=== PATIENT | male | born 1955 | race Caucasian/White ===

== ENCOUNTER 2020-01-04 01:35 | Day surgery (SDC) | payer OTHER, SELFPAY ==
[2020-01-01 10:35] VITALS: BMI 40.9
[2020-01-04 09:18] VITALS: BP 196/89; PULSE 98; RESP 20; TEMP 37.3; O2SAT 96
[2020-01-04] MEDS: LACTATED RINGERS 1,000 ML 150 ML IV CONT (09:39)
--- NOTE | 2020-01-04 09:49 | WPDANESEPPF ---
Anes - Initial Pre Proc Eval Procedure: Operation Date: 01/04/20 10:00 Proposed Procedures p Esophagogastroduodenoscopy - Sanjeev Yuan MD Date/Time: 01/04/20 09:49 Surgeon: Sanjeev Yuan MD Pre Op Diagnosis: Epigastric Pain Patient Data Age: 64 Gender: M Height: 6 ft Weight: 140 kg Last Vital Signs Temp 37.3 C 01/04/20 09:18 Pulse 98 01/04/20 09:18 Resp 20 01/04/20 09:18 BP 196/89 H 01/04/20 09:18 Pulse Ox 96 01/04/20 09:18 Allergies Allergy/AdvReac Type Severity Reaction Status Date / Time Penicillins Allergy Unknown RASH Verified 01/04/20 09:17 Sulfa (Sulfonamide Allergy Unknown RASH/HIVES Verified 01/04/20 09:17 Antibiotics) Home Medications Medication Instructions Recorded Confirmed Type amlodipine-benazepril 5 cap PO DAILY 01/01/20 01/01/20 History cetirizine [Zyrtec] 10 mg PO DAILY 01/01/20 01/01/20 History levothyroxine 175 mcg PO DAILY 01/01/20 01/01/20 History pantoprazole 40 mg PO DAILY 01/01/20 01/01/20 History Patient hx anesthesia problems: none Family hx anesthesia problems: none [facility] Past Medical History Medical History Arthritis Bronchitis Hypertension Hypothyroid Pneumonia Sciatica Surgical History Surgical History Hx of colonoscopy removed 4 polyps Social History Social History Smoking status: Never smoker Gender identity (if verbalized by the patient): Male Anes - Eval Final PreProcedure Day of Procedure 01/04/20 09:49 Patient weight: morbidly obese Heart: regular rate and rhythm Lungs: clear to auscultation Airway: Mallampati scale class II Neurological: alert and oriented Last oral intake: >/= 8 hours ASA classification: III Anesthetic plan: proceed Anesthesia type and monitoring: general GIVS and standard monitoring Informed Consent: The patient's anesthetic plan and its attendant risks and benefits were discussed with the patient/family/POA. Questions were solicited and answers provided to the satisfaction of the patient/family/POA.
--- NOTE | 2020-01-04 10:01 | P.CONGI_ITS ---
Assessment and Plan Additional Plan This is a 64-year-old white male patient who complains of mid epigastric pain. Patient states pain initially 1 month ago was rather severe in the epigastric area prompting him to go to the emergency room. He was felt to have a viral gastroenteritis. Pain is persisted however. He states is gradually improving and has lessened somewhat over recent weeks. Recently started on proton pump inhibitor. He additionally notes intermittent difficulty swallowing more pills will hang up in his throat. His weight has remained stable he denies any bleeding. Past medical history is significant for obesity, hypertension, hypothyroidism, current medications include amlodipine, levothyroxine, pantoprazole, Zyrtec, Allergies include penicillin and sulfa. Physical exam reveals patient to be alert. Vital signs stable. HEENT exam unremarkable. He is anicteric. Lungs are clear to auscultation and percussion. Heart is without murmur or extra sounds. Abdominal exam is somewhat obese. Bowel sounds are present soft nontender. He locates pain to the mid epigastric area. Digital external rectal exam is normal. Impression 1. Epigastric pain. This appears most consistent with dyspepsia. Agree with pantoprazole. Plan is for an EGD to assess more thoroughly. 2. Dysphagia. Appears to be oropharyngeal in nature. Will assess the esophagus at the time of endoscopy. 3. Obesity. 4. Hypertension. 5. Hypothyroidism. Plan is to proceed with EGD as described. Continue pantoprazole for now. GI Consult Note Consult date/time: 01/04/20 10:01 HPI: Pedro Coleman is a 64 year old male [facility] Past Medical History Medical History Arthritis Bronchitis Hypertension Hypothyroid Pneumonia Sciatica Surgical History Surgical History Hx of colonoscopy removed 4 polyps Social History Social History Smoking status: Never smoker Gender identity (if verbalized by the patient): Male Meds Home Medications and Allergies Home Medications Medication Instructions Recorded Confirmed Type amlodipine-benazepril 5 cap PO DAILY 01/01/20 01/01/20 History cetirizine [Zyrtec] 10 mg PO DAILY 01/01/20 01/01/20 History levothyroxine 175 mcg PO DAILY 01/01/20 01/01/20 History pantoprazole 40 mg PO DAILY 01/01/20 01/01/20 History Allergies Allergy/AdvReac Type Severity Reaction Status Date / Time Penicillins Allergy Unknown RASH Verified 01/04/20 09:17 Sulfa (Sulfonamide Allergy Unknown RASH/HIVES Verified 01/04/20 09:17 Antibiotics) Vital Signs Vital Signs - 24 hr 01/04/20 09:18 Temperature 37.3 C Pulse Rate 98 Respiratory Rate 20 Blood Pressure 196/89 H Pulse Oximetry 96
[2020-01-04] MEDS: BENZOCAINE (*SP) 60 ML SPRAY CAN (HURRICAINE) 1 SPRAY MUCOUS MEM (10:46)
[2020-01-04 10:57] VITALS: BP 157/94; PULSE 75; RESP 21; O2SAT 100
[2020-01-04 11:07] VITALS: BP 152/92; PULSE 74; RESP 20; O2SAT 98
[2020-01-04 11:17] VITALS: BP 164/80; PULSE 71; RESP 22; O2SAT 98
== END 2020-01-04 11:30 | disposition home or self-care (01) ==
PROVIDERS: PCP Internal Medicine; Visit Provider Internal Medicine Gastroenterology
PROC: 0DJ08ZZ Inspection of Upper Intestinal Tract, Via Natural or Artificial Opening Endoscopic (ICD-10-PCS; CPT 43235; principal; 2020-01-04 10:00)
DX: R10.13 Epigastric pain (principal); K31.7 Polyp of stomach and duodenum; I10 Essential (primary) hypertension; E03.9 Hypothyroidism, unspecified; M19.90 Unspecified osteoarthritis, unspecified site; E66.01 Morbid (severe) obesity due to excess calories; Z68.41 Body mass index [BMI] 40.0-44.9, adult
CPT/HCPCS: 43239; 87081; 88305; 88342; J2704; J7120

== ENCOUNTER 2020-05-27 15:22 | Outpatient (CLI) | payer OTHER, SELFPAY ==
[2020-05-27 16:16] LABS: Alanine Aminotransferase 47 U/L (4-50); Albumin Level 4.6 g/dL (3.5-5.1); Alkaline Phosphatase 116 U/L (38-126); Aspartate Amino Transferase 39 U/L (17-59); Bilirubin,Total 0.7 mg/dL (0.2-1.3); Blood Urea Nitrogen 13 mg/dL (9-20); Calcium 9.2 mg/dL (8.4-10.2); Carbon Dioxide 26 mmol/L (22-30); Chloride 104 mmol/L (98-107); Cholesterol 175 mg/dL (0-200); Estimated Glomerular Filt Rate > 60; Glucose 108 mg/dL (75-110); HDL Direct 40 mg/dL; LDL Cholesterol Direct 109 mg/dL; Potassium 4.6 mmol/L (3.4-5.0); Sodium 139 mmol/L (137-145); Triglycerides 148 mg/dL (<150)
[2020-05-27 16:31] LABS: Thyroid Stimulating Hormone 0.083 uIU/mL (0.465-4.680)
[2020-05-27 16:43] LABS: Prostate Specific Antigen 4.5 ng/mL (< OR = 4.0)
== END 2020-05-27 15:23 | disposition home or self-care (01) ==
PROVIDERS: PCP Internal Medicine; Visit Provider Internal Medicine
DX: Z00.00 Encounter for general adult medical examination without abnormal findings (principal)
CPT/HCPCS: 36415; 80053; 80061; 84153; 84443

== ENCOUNTER 2020-10-07 15:23 | Outpatient (CLI) | payer OTHER, SELFPAY ==
[2020-10-07 15:55] LABS: Basophils Absolute Auto 0.1 K/mm3 (0.0-0.1); Basophils Percent Auto 0.8 % (0.2-1.2); Eosinophils Absolute Auto 0.4 K/mm3 (0-0.3); Eosinophils Percent Auto 5.3 % (0-4.4); Hematocrit 50.8 % (42.0-52.0); Hemoglobin 16.8 g/dL (14.0-18.0); Immature Granulocyte Absolute 0.02 K/mm3 (0.00-0.031); Immature Granulocyte Percent A 0.3 % (0-0.5); Lymphocytes Absolute Auto 1.59 K/mm3 (0.9-3.2); Lymphocytes Percent Auto 22.1 % (18.3-44.2); Mean Corpuscular HGB Conc 33.1 g/dl (32-36); Mean Corpuscular Hemoglobin 31.3 pg (26-34); Mean Corpuscular Volume 94.6 fl (80-100); Mean Platelet Volume 11.9 fl (7.4-10.4); Monocytes Absolute Auto 0.6 K/mm3 (0.1-0.6); Monocytes Percent Auto 7.9 % (2.6-8.5); Neutrophils Absolute Auto 4.6 K/mm3 (1.3-6.7); Neutrophils Percent Auto 63.6 % (45.5-73.1); Platelet Count Result 185 k/mm3 (150-375); Red Blood Count 5.37 M/mm3 (4.6-6.20); Red Cell Distribution Width 14.1 % (11.5-14.5); White Blood Count 7.2 K/mm3 (4.5-10.0)
[2020-10-07 16:35] LABS: Prostate Specific Antigen 1.7 ng/mL (< OR = 4.0)
== END 2020-10-07 15:24 | disposition home or self-care (01) ==
LOC: ANHLAB 15:26
PROVIDERS: PCP Internal Medicine; Visit Provider Internal Medicine
DX: R97.20 Elevated prostate specific antigen [PSA] (principal); E83.119 Hemochromatosis, unspecified
CPT/HCPCS: 36415; 82728; 84153; 85025

== ENCOUNTER 2021-06-03 16:30 | Outpatient (CLI) | payer OTHER, SELFPAY ==
[2021-06-03 17:00] LABS: Basophils Absolute Auto 0.1 K/mm3 (0.0-0.1); Basophils Percent Auto 0.8 % (0.2-1.2); Eosinophils Absolute Auto 0.3 K/mm3 (0-0.3); Eosinophils Percent Auto 4.6 % (0-4.4); Hematocrit 52.9 % (42.0-52.0); Hemoglobin 17.8 g/dL (14.0-18.0); Immature Granulocyte Absolute 0.01 K/mm3 (0.00-0.031); Immature Granulocyte Percent A 0.1 % (0-0.5); Lymphocytes Absolute Auto 1.31 K/mm3 (0.9-3.2); Lymphocytes Percent Auto 17.8 % (18.3-44.2); Mean Corpuscular HGB Conc 33.6 g/dl (32-36); Mean Corpuscular Hemoglobin 32.3 pg (26-34); Mean Platelet Volume 11.9 fl (7.4-10.4); Monocytes Absolute Auto 0.6 K/mm3 (0.1-0.6); Monocytes Percent Auto 7.9 % (2.6-8.5); Neutrophils Absolute Auto 5.1 K/mm3 (1.3-6.7); Neutrophils Percent Auto 68.8 % (45.5-73.1); Platelet Count Result 198 k/mm3 (150-375); Red Blood Count 5.51 M/mm3 (4.6-6.20); Red Cell Distribution Width 13.4 % (11.5-14.5); White Blood Count 7.4 K/mm3 (4.5-10.0)
[2021-06-03 19:02] LABS: Alanine Aminotransferase 54 U/L (4-50); Alkaline Phosphatase 108 U/L (38-126); Anion Gap 12 mmol/L (8-16); Aspartate Amino Transferase 50 U/L (17-59); Bilirubin,Total 1.3 mg/dL (0.2-1.3); Blood Urea Nitrogen 12 mg/dL (9-20); Calcium 10.4 mg/dL (8.4-10.2); Carbon Dioxide 27 mmol/L (22-30); Chloride 98 mmol/L (98-107); Cholesterol 249 mg/dL (0-200); Estimated Glomerular Filt Rate 60; Glucose 110 mg/dL (75-110); HDL Direct 57 mg/dL; Potassium 4.4 mmol/L (3.4-5.0); Sodium 137 mmol/L (137-145); Triglycerides 162 mg/dL (<150)
[2021-06-03 19:15] LABS: LDL Cholesterol Direct 131 mg/dL
== END 2021-06-03 16:31 | disposition home or self-care (01) ==
LOC: ANHLAB 16:35
PROVIDERS: PCP Internal Medicine; Visit Provider Internal Medicine
DX: Z00.00 Encounter for general adult medical examination without abnormal findings (principal)
CPT/HCPCS: 36415; 80053; 80061; 82728; 84153; 85025

== ENCOUNTER 2021-07-15 15:38 | Outpatient (CLI) | payer OTHER, SELFPAY ==
[2021-07-15 16:12] LABS: Basophils Absolute Auto 0.1 K/mm3 (0.0-0.1); Basophils Percent Auto 0.9 % (0.2-1.2); Eosinophils Absolute Auto 0.3 K/mm3 (0-0.3); Eosinophils Percent Auto 4.5 % (0-4.4); Hematocrit 51.6 % (42.0-52.0); Hemoglobin 16.9 g/dL (14.0-18.0); Immature Granulocyte Absolute 0.02 K/mm3 (0.00-0.031); Immature Granulocyte Percent A 0.3 % (0-0.5); Lymphocytes Absolute Auto 1.24 K/mm3 (0.9-3.2); Lymphocytes Percent Auto 17.8 % (18.3-44.2); Mean Corpuscular HGB Conc 32.8 g/dl (32-36); Mean Corpuscular Hemoglobin 32.4 pg (26-34); Mean Platelet Volume 12.1 fl (7.4-10.4); Monocytes Absolute Auto 0.5 K/mm3 (0.1-0.6); Monocytes Percent Auto 7.8 % (2.6-8.5); Neutrophils Absolute Auto 4.8 K/mm3 (1.3-6.7); Neutrophils Percent Auto 68.7 % (45.5-73.1); Platelet Count Result 177 k/mm3 (150-375); Red Blood Count 5.21 M/mm3 (4.6-6.20); Red Cell Distribution Width 13.2 % (11.5-14.5)
[2021-07-15 20:14] LABS: Iron 103 ug/dL (49-181)
[2021-07-15 20:33] LABS: Percent Iron Saturation 30 % (20-50)
[2021-07-18 18:31] LABS: Erythropoietin (EPO) 10.2 mIU/mL (2.6-18.5)
== END 2021-07-15 15:39 | disposition home or self-care (01) ==
PROVIDERS: PCP Internal Medicine; Visit Provider Internal Medicine Hematology & Oncology
DX: D75.1 Secondary polycythemia (principal); E83.19 Other disorders of iron metabolism
CPT/HCPCS: 36415; 81256; 82668; 82728; 83540; 83550; 85025

== ENCOUNTER 2021-08-14 00:03 | Day surgery (SDC) | payer OTHER, SELFPAY ==
[2021-07-31 13:42] VITALS: BMI 44.2
[2021-08-14 06:55] VITALS: BP 146/86; PULSE 94; RESP 18; TEMP 36.4; O2SAT 97; BMI 44.1
[2021-08-14] MEDS: LACTATED RINGERS 1,000 ML 150 ML IV CONT (07:09)
--- NOTE | 2021-08-14 07:27 | WPDGICN ---
Assessment and Plan Assessment and plan (1) Encounter for screening colonoscopy: Code(s): Z12.11 - Encounter for screening for malignant neoplasm of colon Status: Acute Assessment and Plan: Patient presents for screening colonoscopy. He appears to be at average risk for colon polyps. Further recommendations will be given after endoscopy. (2) Obesity (BMI 30.0-34.9): Code(s): E66.9 - Obesity, unspecified Status: Acute Assessment and Plan: Patient has obesity. Weight loss increase activity or strongly encourage. GI Consult Note Consult date/time: 08/14/21 07:27 HPI: Pedro Coleman is a 66 year old male Presents for screening colonoscopy. patient reports that his weight appetite bowel movements are normal. He denies abdominal pain. He has had no bleeding. Family history is noncontributory. Review of Systems Review of Systems: All systems reviewed & are unremarkable except as noted in HPI and below PMFSH Past Medical History Medical History (Updated 08/14/21 @ 07:29 by Sanjeev Yuan MD) Arthritis Bronchitis Hypertension Hypothyroid Pneumonia Sciatica Surgical History Surgical History Hx of colonoscopy removed 4 polyps Social History Social History Smoking packs per day: 2 Smoking cigarettes per day: 40.0 Years smoked: 35 Smoking pack-years: 70.00 Smoking status: Former smoker Tobacco type: cigarettes Alcohol intake: current Drinks per week: 20 Substance use: never Substance use type: does not use Living arrangements: with family Gender identity (if verbalized by the patient): Male Spiritual care concerns: No Meds Home Medications and Allergies Home Medications Medication Instructions Recorded Confirmed Type amlodipine-benazepril 5 cap PO DAILY 01/01/20 08/14/21 History cetirizine [Zyrtec] 10 mg PO DAILY 01/01/20 08/14/21 History levothyroxine 175 mcg PO DAILY 01/01/20 08/14/21 History aspirin 81 mg PO DAILY 07/31/21 08/14/21 History finasteride 5 mg PO DAILY 07/31/21 08/14/21 History phentermine 30 mg PO DAILY 07/31/21 08/14/21 History tamsulosin 0.4 mg PO DAILY 07/31/21 08/14/21 History Allergies Allergy/AdvReac Type Severity Reaction Status Date / Time Penicillins Allergy Unknown RASH Verified 08/14/21 06:54 Sulfa (Sulfonamide Allergy Unknown RASH/HIVES Verified 08/14/21 06:54 Antibiotics) Vital Signs Vital Signs - 24 hr 08/14/21 06:55 Temperature 97.5 F L Pulse Rate 94 Respiratory Rate 18 Blood Pressure 146/86 H Pulse Oximetry 97 Exam Narrative: Physical exam reveals patient to be alert. Vital signs stable. HEENT exam is unremarkable. Patient is anicteric. Lungs are clear to auscultation and percussion. Heart is without murmur or extra sounds. Abdominal exam is somewhat obese. Bowel sounds are present soft nontender with no organomegaly. Digital external rectal exam is normal.
--- NOTE | 2021-08-14 07:41 | WPDANESEPPF ---
Anes - Initial Pre Proc Eval Procedure: Operation Date: 08/14/21 08:00 Proposed Procedures p Screening Colonoscopy - Sanjeev Yuan MD Date/Time: 08/14/21 07:41 Surgeon: Sanjeev Yuan MD Pre Op Diagnosis: neoplasm screening Patient Data Age: 66 Gender: M Height: 1.83 m Weight: 147.8 kg Last Vital Signs Temp 97.5 F L 08/14/21 06:55 Pulse 94 08/14/21 06:55 Resp 18 08/14/21 06:55 BP 146/86 H 08/14/21 06:55 Pulse Ox 97 08/14/21 06:55 Allergies Allergy/AdvReac Type Severity Reaction Status Date / Time Penicillins Allergy Unknown RASH Verified 08/14/21 06:54 Sulfa (Sulfonamide Allergy Unknown RASH/HIVES Verified 08/14/21 06:54 Antibiotics) Home Medications Medication Instructions Recorded Confirmed Type amlodipine-benazepril 5 cap PO DAILY 01/01/20 08/14/21 History cetirizine [Zyrtec] 10 mg PO DAILY 01/01/20 08/14/21 History levothyroxine 175 mcg PO DAILY 01/01/20 08/14/21 History aspirin 81 mg PO DAILY 07/31/21 08/14/21 History finasteride 5 mg PO DAILY 07/31/21 08/14/21 History phentermine 30 mg PO DAILY 07/31/21 08/14/21 History tamsulosin 0.4 mg PO DAILY 07/31/21 08/14/21 History Patient hx anesthesia problems: none Family hx anesthesia problems: none Results Review: All pre-operative results and documents have been reviewed as part of the pre-operative evaluation. [facility] Past Medical History Medical History (Updated 08/14/21 @ 07:29 by Sanjeev Yuan MD) Arthritis Bronchitis Hypertension Hypothyroid Pneumonia Sciatica Surgical History Surgical History Hx of colonoscopy removed 4 polyps Social History Social History Smoking packs per day: 2 Smoking cigarettes per day: 40.0 Years smoked: 35 Smoking pack-years: 70.00 Smoking status: Former smoker Tobacco type: cigarettes Alcohol intake: current Drinks per week: 20 Substance use: never Substance use type: does not use Living arrangements: with family Gender identity (if verbalized by the patient): Male Spiritual care concerns: No Anes - Eval Final PreProcedure Day of Procedure 08/14/21 07:41 Patient weight: morbidly obese Heart: regular rate and rhythm Lungs: clear to auscultation Airway: Mallampati scale class III Neurological: alert and oriented Last oral intake: >/= 8 hours ASA classification: III Emergent: no Anesthetic plan: proceed Anesthesia type and monitoring: general GIVS and standard monitoring Results Review: All pre-operative results and documents have been reviewed as part of the pre-operative evaluation. Informed Consent: The patient's anesthetic plan and its attendant risks and benefits were discussed with the patient/family/POA. Questions were solicited and answers provided to the satisfaction of the patient/family/POA.
[2021-08-14 08:21] VITALS: BP 112/69; PULSE 75; RESP 22; O2SAT 98
[2021-08-14 08:31] VITALS: BP 139/70; PULSE 72; RESP 23; O2SAT 97
[2021-08-14 08:41] VITALS: BP 143/84; PULSE 66; RESP 19; O2SAT 100
== END 2021-08-14 08:47 | disposition home or self-care (01) ==
PROVIDERS: PCP Internal Medicine; Visit Provider Internal Medicine Gastroenterology
PROC: 0DJD8ZZ Inspection of Lower Intestinal Tract, Via Natural or Artificial Opening Endoscopic (ICD-10-PCS; CPT 45378; principal; 2021-08-14 08:00)
DX: Z12.11 Encounter for screening for malignant neoplasm of colon (principal); K64.8 Other hemorrhoids; K57.30 Diverticulosis of large intestine without perforation or abscess without bleeding; Z86.010 Personal history of colon polyps; I10 Essential (primary) hypertension; E03.9 Hypothyroidism, unspecified; Z87.891 Personal history of nicotine dependence; E66.01 Morbid (severe) obesity due to excess calories; Z68.41 Body mass index [BMI] 40.0-44.9, adult; Z79.82 Long term (current) use of aspirin
CPT/HCPCS: 45378; J2001; J2704; J7120

== ENCOUNTER 2021-10-21 10:16 | Outpatient (CLI) | payer OTHER, SELFPAY ==
--- NOTE | ~2021-10-21 | US_ITS ---
EXAMINATION: US venous doppler [facility] DATE: 10/21/2021 10:50 INDICATION: Acute deep venous thrombosis TECHNIQUE: Grayscale ultrasound images without and with compression and Doppler ultrasound images of the bilateral lower extremity veins were obtained. COMPARISON: None. FINDINGS: The visualized portions of right common femoral vein, profunda (deep) femoral vein, femoral vein, pop liteal vein, posterior tibial veins, peroneal veins, gastrocnemius vein and greater saphenous vein ou tflow are patent. The visualized portions of left common femoral vein, profunda femoral vein, femoral vein, popliteal v ein, posterior tibial veins, peroneal veins, gastrocnemius vein and greater saphenous vein outflow ar e patent. IMPRESSION: 1. No deep venous thrombosis in either lower limb. Reviewed, dictated and finalized at location A. [place] ROASTER
== END 2021-10-21 10:17 | disposition home or self-care (01) ==
LOC: ANHIMG 10:16
PROVIDERS: PCP Internal Medicine; Visit Provider Internal Medicine Hematology & Oncology
DX: I82.4Y3 Acute embolism and thrombosis of unspecified deep veins of proximal lower extremity, bilateral (principal)
CPT/HCPCS: 93970

== ENCOUNTER 2022-04-29 22:54 | Observation (INO) | payer OTHER, SELFPAY ==
--- NOTE | ~2022-04-29 | NM_ITS ---
NM hepatobiliary wo pharm DATE: 04/30/2022 14:51 INDICATION: Cholelithiasis and mild gallbladder wall thickening TECHNIQUE: Serial images of the abdomen up to 60 minutes after intravenous administration of 5 mCi 99 m technetium Choletec. 4 hour delay views. COMPARISON: None FINDINGS: There is normal hepatic extraction of the radiopharmaceutical. No bile duct or gallbladder uptake is noted at [address] abdomen pelvis examination of 04/30/2022 reveals no intrahepatic or extrahepatic b ile duct dilatation. The therefore the retention of activity in the liver and absence of bile duct or gastrointestinal uptake was suggests liver dysfunction. IMPRESSION: Retention of activity in the liver without bile duct or gastrointestinal or gallbladder a ctivity, suggesting liver dysfunction Reviewed, dictated and finalized at [facility]. Reviewed, dictated and finalized at location A. IMPRESSION: Retention of activity in the liver without bile duct or gastrointes tinal or gallbladder activity, suggesting liver dysfunction
--- NOTE | ~2022-04-29 | MR_ITS ---
EXAMINATION: MR MRCP wo/w con/w 3D wo ind DATE: 04/30/2022 13:07 INDICATION: Choledocholithiasis. Abdominal pain. TECHNIQUE: Magnetic resonance imaging (MRI) of the abdomen was performed without and with 20 mL Multi Manpreet intravenous contrast. Sequences included coronal T2-weighted FS FSE, coronal T2-weighted FSE, a xial T1-weighted LAVA, coronal FS FIESTA, axial dual-echo T1-weighted SPGR, coronal lava-FLEX, sagitt al T2-weighted FSE, axial T2-weighted FSE, and axial DWI. Thick-slab T2-weighted FSE images were obta ined for magnetic resonance cholangiopancreatography (MRCP). Maximum intensity projection 3-D reconst ructions of the volumetric data were created by the technologist. Postcontrast sequences included cor onal LAVA-flex and time course of axial T1-weighted LAVA. COMPARISON: CT abdomen and pelvis 04/30/2022, ultrasound abdomen 04/30/2022 FINDINGS: ABDOMEN MRI: There is diffuse hepatic steatosis. The gallbladder is normal in size and contains stone s. The spleen, pancreas, and adrenal glands are normal. There are peripelvic cysts in the kidneys kody suring up to 2.3 cm on the left. There are no dilated loops of bowel. The bladder is distended. ABDOMEN MRCP: The common duct is normal and measures 3 mm. No choledocholithiasis. IMPRESSION: 1. Normal common duct. No choledocholithiasis. 2. Diffuse hepatic steatosis. 3. Cholelithiasis. Reviewed, dictated and finalized at location A.
--- NOTE | ~2022-04-29 | CT_ITS ---
EXAMINATION: CT abdomen pelvis wo con DATE: 04/30/2022 01:43 INDICATION: Epigastric abdominal pain. Abnormal liver function tests. TECHNIQUE: Computed tomography (CT) of the abdomen and pelvis was performed without intravenous contr ast. Automated exposure control and iterative reconstruction technique were employed. The dose-length product was 1574.98 mGy-cm. COMPARISON: CT abdomen and pelvis 12/12/2019 FINDINGS: The visualized portions of the lung bases demonstrate mild atelectasis. No pleural effusion . The heart size is normal. There are coronary artery calcifications. No pericardial effusion. There is diffuse hepatic steatosis. The gallbladder is distended. There is fat stranding around the gallbla dder. The spleen, pancreas, adrenal glands, and right kidney are normal. There are peripelvic cysts i n left kidney measuring up to 2.2 cm. The bladder is distended. The prostate is mildly enlarged. Ther e is diverticulosis of the colon without evidence of diverticulitis. There are no dilated loops of zhang wel. The appendix is normal. There are no pathologically enlarged lymph nodes. There is no free intra peritoneal fluid. There are bridging endplate osteophytes at multiple levels in the spine, consistent with diffuse idiopathic skeletal hyperostosis (DISH). IMPRESSION: 1. Distended gallbladder with surrounding fat stranding suspicious for acute cholecystitis. 2. Diffuse hepatic steatosis. Reviewed, dictated and finalized at location A. IMPRESSION: 1. Distended gallbladder with surrounding fat stranding suspicious for acute ch olecystitis. 2. Diffuse hepatic steatosis.
--- NOTE | ~2022-04-29 | US_ITS ---
EXAMINATION: US abdomen limited DATE: 04/30/2022 10:55 INDICATION: Elevated liver function tests TECHNIQUE: Multiple grayscale and Doppler ultrasound images of the abdomen were obtained. COMPARISON: CT from today FINDINGS: The examination is limited by the patient's body habitus. Bowel gas obscures visualizatio n of the pancreas. The visualized portions of the pancreas are unremarkable. The liver demonstrates i ncreased echogenicity, heterogenous echotexture, and decreased through transmission. No surface nodul arity. Normal hepatopetal flow in the main portal vein. There are stones in the gallbladder. There is mild wall thickening of the gallbladder. No pericholecystic fluid is identified. The normal common b ile duct measures 3 mm. There was no sonographic Harman sign. IMPRESSION: 1. Cholelithiasis and mild gallbladder wall thickening without pericholecystic fluid or sonographic M urphy sign. Findings are equivocal for acute cholecystitis. Consider nuclear hepatobiliary scan. Reviewed, dictated and finalized at location A. IMPRESSION: 1. Cholelithiasis and mild gallbladder wall thickening without pericholecystic fluid or sonographic Harman sign. Findings are equivocal for acute cholecystiti s. Consider nuclear hepatobiliary scan.
[2022-04-29 22:55] VITALS: BP 170/78; PULSE 72; RESP 20; TEMP 36.9; O2SAT 99
--- NOTE | 2022-04-29 23:01 | ECG_ITS ---
Measurements Intervals [place] Rate: 52 P: 50 AK: 166 QRS: 24 QRSD: 98 T: 67 QT: 408 QTc: 383 Interpretive Statements SINUS BRADYCARDIA WITH SINUS ARRHYTHMIA WITHIN NORMAL LIMITS NO PREVIOUS ECG AVAILABLE FOR COMPARISON Electronically Signed On 04-30-2022 14:05:25 CDT by Michael Thacker M.D.
[2022-04-29 23:28] LABS: Basophils Absolute Auto 0.1 K/mm3 (0.0-0.1); Basophils Percent Auto 0.8 % (0.2-1.2); Eosinophils Absolute Auto 0.1 K/mm3 (0-0.3); Eosinophils Percent Auto 0.8 % (0-4.4); Hematocrit 50.4 % (42.0-52.0); Hemoglobin 16.6 g/dL (14.0-18.0); Immature Granulocyte Absolute 0.03 K/mm3 (0.00-0.031); Immature Granulocyte Percent A 0.3 % (0-0.5); Lymphocytes Absolute Auto 1.08 K/mm3 (0.9-3.2); Lymphocytes Percent Auto 12.3 % (18.3-44.2); Mean Corpuscular HGB Conc 32.9 g/dl (32-36); Mean Corpuscular Hemoglobin 31.3 pg (26-34); Mean Corpuscular Volume 95.1 fl (80-100); Mean Platelet Volume 11.7 fl (7.4-10.4); Monocytes Absolute Auto 0.6 K/mm3 (0.1-0.6); Monocytes Percent Auto 6.6 % (2.6-8.5); Neutrophils Percent Auto 79.2 % (45.5-73.1); Platelet Count Result 222 k/mm3 (150-375); Red Cell Distribution Width 13.3 % (11.5-14.5); White Blood Count 8.8 K/mm3 (4.5-10.0)
[2022-04-29 23:36] LABS: Alanine Aminotransferase 535 U/L (6-50); Albumin Level 4.8 g/dL (3.5-5.1); Alkaline Phosphatase 162 U/L (38-126); Anion Gap 8 mmol/L (8-16); Aspartate Amino Transferase 482 U/L (17-59); Bilirubin,Total 2.8 mg/dL (0.2-1.3); Blood Urea Nitrogen 14 mg/dL (9-20); Calcium 9.6 mg/dL (8.4-10.2); Carbon Dioxide 27 mmol/L (22-30); Chloride 97 mmol/L (98-107); Estimated CRCL calculation 85 ml/min; Estimated Glomerular Filt Rate > 60; Glucose 131 mg/dL (65-110); Lipase 609 U/L (23-300); Sodium 132 mmol/L (137-145)
[2022-04-30] VITALS (7 sets, daily range): BP systolic 148–198; BP diastolic 58–100; PULSE 56–91; RESP 12–20; TEMP 35.8–36.7; O2SAT 96–100; BMI 43.4
[2022-04-30] MEDS: MORPHINE SULFATE (*CRX) 4 MG/ML INJ IV PUSH (01:57)
--- NOTE | 2022-04-30 02:21 | ED.ABDPAIN ---
HPI - Abdominal Pain General Chief Complaint: Abdominal Pain Stated Complaint: abd pain Time Seen by Provider: 04/30/22 01:01 Source: patient History of Present Illness HPI narrative: Patient resents with epigastric pain. Patient ports pain started around this afternoon is gotten progressively worse he came to the ER for further evaluation. Reports he attempted multiple [id number] medications without relief. His pain is achy, constant, no radiation, no clear aggravating or alleviating factors. Ports that a similar event couple years ago but it resolved on its own so was never evaluated for it. Reports some nausea denies any diarrhea constipation denies any urinary symptoms. Patient reports a history of hernia repair denies other abdominal surgeries. Related Data Home Medications Medication Instructions Recorded Confirmed amlodipine 5 mg-benazepril 20 mg 5 cap PO DAILY 01/01/20 04/01/22 capsule cetirizine 10 mg capsule (Zyrtec) 10 mg PO DAILY 01/01/20 04/01/22 levothyroxine 175 mcg tablet 175 mcg PO DAILY 01/01/20 04/01/22 aspirin 81 mg capsule 325 mg PO DAILY 07/31/21 04/01/22 finasteride 5 mg tablet 5 mg PO DAILY 07/31/21 04/01/22 phentermine 30 mg capsule 30 mg PO DAILY 07/31/21 04/01/22 tamsulosin 0.4 mg capsule 0.4 mg PO DAILY 07/31/21 04/01/22 Allergies Allergy/AdvReac Type Severity Reaction Status Date / Time Penicillins Allergy Unknown RASH Verified 04/30/22 01:54 Sulfa (Sulfonamide Allergy Unknown RASH/HIVES Verified 04/30/22 01:54 Antibiotics) Review of Systems Review of Systems: CONSTITUTIONAL: Denies fever, chills, or sweats. EYES: Denies visual changes, redness, or discharge. ENT: Denies rhinorrhea, congestion, sore throat, or otalgia. CARDIOVASCULAR: Denies chest pain, palpitations, or edema. RESPIRATORY: Denies cough or dyspnea. GASTROINTESTINAL: Abdominal pain with nausea GENITOURINARY: Denies dysuria or hematuria. SKIN: Denies rash or itching. MUSCULOSKELETAL: Denies back pain, joint pain, or myalgia. NEUROLOGIC: Denies headache, numbness, dizziness, or weakness. PSYCHIATRIC: Denies anxiety or depression. All systems reviewed & are unremarkable except as noted in HPI and below PMFSH Past Medical History Medical History (Updated 04/30/22 @ 03:09 by Duglas Abraham MD) Arthritis Bronchitis Hypertension Hypothyroid Pneumonia Sciatica Surgical History Surgical History Hx of colonoscopy removed 4 polyps Social History Social History Smoking packs per day: 2 Smoking cigarettes per day: 40.0 Years smoked: 35 Smoking pack-years: 70.00 Smoking status: Former smoker Tobacco type: cigarettes Alcohol intake: current Drinks per week: 20 Substance use: never Substance use type: does not use Gender identity (if verbalized by the patient): Male Spiritual care concerns: No Exam Narrative: GENERAL: Well-appearing, well-nourished, and in no acute distress. HEAD: Normocephalic, atraumatic. EYES: PERRLA and EOMI. ENT: Nares clear, no rhinorrhea or epistaxis. Mucous membranes moist. NECK: Supple. No masses. No JVD CHEST: Clear to auscultation. No respiratory distress. No wheezes rales or rhonchi HEART: Regular rate and rhythm. No murmur heard. Normal peripheral pulses. ABDOMEN: Moderate tenderness in the epigastric area soft, nondistended EXTREMITIES: Normal range of motion. No edema. SKIN: Warm, dry, no rash. NEURO: No focal deficits. Alert and oriented x3. PSYCH: Normal mood and affect. Course Reevaluation(s) Reevaluation #1: Patient continues to report pain. Results and plan reviewed with patient. Patient is comfortable inpatient plan. Case cussed with surgery as well as GI will follow along. Patient mated to the hospitalist for further management Date: 04/30/22 Time: 03:06 Vital Signs Vital signs: Vital Signs Temperature 36.9 C
[2022-04-30 02:59] LABS: Appearance Urine Clear (Clear); Bilirubin Urine 1+ (Negative); Blood Urine Negative (Negative); Color Urine Yellow (Yellow); Glucose Urine UA Negative (Negative); Ketones Urine Negative (Negative); Leukocyte Esterase Ur Negative LEU/UL (Negative); Nitrate Urine Negative (Negative); Protein Urine Trace mg/dL (Negative); Urobilinogen Urine 0.2 mg/dL (<2.0); pH Urine 6.5 (5.0-9.0)
[2022-04-30 03:06] LABS: Mucus Urine Rare /lpf; WBC Urine 0-3 /hpf
--- NOTE | 2022-04-30 03:11 | PC.NURSE ---
Pt states they want to hold off on Morphine at this time.
[2022-04-30 03:14] LABS: Add Urine Microscopic? YES
[2022-04-30] MEDS: metroNIDAZOLE 500 MG/ISO 100ML 500 MG/100 ML BAG 100 MG IVPB ×3 (04:02→17:23)
--- NOTE | 2022-04-30 05:37 | PC.NURSE ---
This patient, Pedro Coleman, was admitted to 3 [facility] Surg Room 309-01. Patient/family oriented to hospital policies and general routines including ID bracelet, bed and alarms, visiting hours, pain management, procedures, bathroom and other care routines, personal items, smoking policy, room service/diet, and visiting hours. Information on how to activate the Rapid Response Team has been discussed. Patient/Family are encouraged to report perceived risks to care and to ask questions if they do not understand what they are told or what they should do.
[2022-04-30] MEDS: SODIUM CHLORIDE 0.9% IV 1,000 ML 125 ML IV CONT ×2 (05:49→17:22)
--- NOTE | 2022-04-30 09:35 | PM.IMHP ---
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 Over the past week, patient has been epigastric usually starting hours after eating meal. He would take Rolaids with benefit. Around 3:00 p.m. on the day prior to admission, patient had recurrent epigastric pain that was much more severe in nature rating it 7/10. The pain was constant and sharp. No radiation to the pain. Was not positional. It was pleuritic and this would make the pain worse to 10/10. He tried Gas-X, Prilosec, Rolaids and Tums without benefit. He did have an episode similar to this 3-4 months ago but did not seek medical care at that time. No history of jaundice. No history of hepatitis. Belching made the pain slightly better. He was diaphoretic but no fever or chills. No nausea or vomiting. He has bowel movements once a day in the morning and occasional diarrhea stool with urgency about 2 to 3 times a week that he feels related to food. No melena or hematochezia. EGD on 01/04/2020 showed a gastric nodule that was excised. Pathology showed polypoid gastric mucosa with chronic inflammation. Colonoscopy on 08/14/2021 showed internal hemorrhoids and diverticulosis. He was noted to have evidence of some possible sleep apnea after that colonoscopy. Patient has not followed up his primary care doctor yet to have this evaluated. He does snore but his is never mention that he has apneic spells. He denies daytime somnolence. 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 He is unclear what the underlying etiology is. He does not believe he has had blood gas. He receives monthly phlebotomies for this. He does not take NSAIDs regularly except full ASA due to his erythrocyosis. Because of the severity of the pain and the fact that was constant, patient presented to the emergency room for evaluation. In the emergency room, his blood pressure was as high as 190/100. CBC was normal. LFTs were elevated. Lipase was 609. CT scan of the abdomen pelvis without contrast showed distended gallbladder with surrounding fat stranding suspicious for acute cholecystitis. He also had diffuse hepatic steatosis. Liver enzymes have all been mildly elevated in the past. Patient does drink 4-6 alcoholic drinks per day. He has never experienced alcohol withdrawal, seizures or delirium tremens. He was treated with morphine, Flagyl and Levaquin. Patient was admitted for further care. Pain has resolved with treatment from the ED. Review of Systems Review of Systems: Patient has tinnitus which is chronic. Patient also has lower extremity rash that is chronic felt to be related to the erythrocytosis. All systems reviewed & are unremarkable except as noted in HPI and below PMFSH Past Medical History Medical History (Updated 04/30/22 @ 10:01 by Aristeo Rabago MD) Arthritis BPH (benign prostatic hyperplasia) Bronchitis Hypertension Hypothyroid Pneumonia Sciatica Secondary erythrocytosis Surgical History Surgical History Hx of colonoscopy removed 4 polyps Family History Family History (Updated 04/30/22 @ 09:55 by Aristeo Rabago MD) Mother Diabetes mellitus Father Dementia Skin cancer Sibling Hemochromatosis Social History Social History (Updated 04/30/22 @ 09:57 by Aristeo Rabago MD) Social History: Patient lives with his , son and granddaughter. He drinks 2-3 alcoholic drinks per day with 2 shots per drink. No drug use. No history of IV drug use. Patient smoked up to 2-3 packs per day for 40 years (started at age 14yo). He quit 13 years ago. He is a full code. He nominates his to be the individual would make medical decisions for him if he is unable. Smoking packs per day: 2 Smoking cigarettes per day: 40.0 Years smoked: 35 Smoking
--- NOTE | 2022-04-30 09:51 | WPDGICN ---
Assessment and Plan Assessment and plan (1) Abdominal pain: Qualifiers: Abdominal location: epigastric Qualified Code(s): R10.13 - Epigastric pain Code(s): R10.9 - Unspecified abdominal pain Status: Acute Assessment and Plan: Patient with abrupt onset of mid epigastric pain associated with elevated LFTs and lipase. CT scan raises the question cholecystitis. No specific abnormality in the pancreas. Suspect patient has cholecystitis based on these findings but cannot exclude pancreatitis. Plan to pursue more thorough evaluation with ultrasound. A HIDA scan. If necessary an MRCP after this is accomplished. Because of the question of cholecystitis surgical consultation will be obtained. (2) Elevated LFTs: Code(s): R79.89 - Other specified abnormal findings of blood chemistry Status: Acute Assessment and Plan: Elevated LFTs. Appears to correlate with his abdominal pain. Suspect cholecystitis. No obvious gallstones by initial examination but will seek to exclude this further by ultrasound and HIDA scan. CT scan several years ago revealed no gallstones. (3) Elevated lipase: Code(s): R74.8 - Abnormal levels of other serum enzymes Status: Acute Assessment and Plan: Elevated lipase to 600. May be associated with inflammation but pancreatitis cannot be excluded. Patient is relatively pain free this morning. CT scan without contrast does not specifically see any inflammation of the pancreas however does suggest cholecystitis. Surgery follow-up is anticipated. Will continue to monitor these labs on a daily basis. (4) Erythrocytosis: Code(s): D75.1 - Secondary polycythemia Status: Inactive (5) Obesity (BMI 30.0-34.9): Code(s): E66.9 - Obesity, unspecified Status: Inactive GI Consult Note Consult date/time: 04/30/22 09:51 Reason for consult: Elevated LFTs and abdominal pain. HPI: Pedro Coleman is a 67 year old male I am asked to see at the request of the emergency room. Patient in usual state of health till last evening he began to have mid epigastric pain that became very intense. It did not radiate. Did not radiate to his back. He had no emesis. This did not alleviate his cellphone for this reason he went to the emergency room. He was given pain injections in this morning feels somewhat improved. In the ER elevated LFTs were identified. Patient states he had similar pain that lasted for a day several months ago. No workup was performed he did not talk to his doctor about this. Patient recently seen over the last 2 years for a screening colonoscopy that was unremarkable he had mild gastritis on an EGD. His family history is noncontributory. Patient has been followed for by Hematology for erythrocytosis. This been treated with phlebotomies. Family history as stated is noncontributory. In the ER CT scan without contrast raises the question of cholecystitis. Review of Systems Review of Systems: Review of systems noncontributory. [facility] Past Medical History Medical History (Updated 04/30/22 @ 09:55 by Aristeo Rabago MD) Arthritis BPH (benign prostatic hyperplasia) Bronchitis Hypertension Hypothyroid Pneumonia Sciatica Secondary erythrocytosis Surgical History Surgical History Hx of colonoscopy removed 4 polyps Family History Family History (Updated 04/30/22 @ 05:42 by Jef Altman RN) Mother Diabetes mellitus Father Dementia Skin cancer Sibling Hemochromatosis Social History Social History Smoking packs per day: 2 Smoking cigarettes per day: 40.0 Years smoked: 35 Smoking pack-years: 70.00 Smoking status: Former smoker Tobacco type: cigarettes Second hand tobacco smoke exposure: Yes Alcohol intake: current Drinks per week: 20 Substance use: never Substan
[2022-04-30 10:07] LABS: Basophils Percent Auto 0.6 % (0.2-1.2); Eosinophils Percent Auto 0.6 % (0-4.4); Hematocrit 48.7 % (42.0-52.0); Hemoglobin 15.6 g/dL (14.0-18.0); Immature Granulocyte Absolute 0.03 K/mm3 (0.00-0.031); Immature Granulocyte Percent A 0.4 % (0-0.5); Lymphocytes Absolute Auto 1.04 K/mm3 (0.9-3.2); Lymphocytes Percent Auto 15.5 % (18.3-44.2); Mean Corpuscular Hemoglobin 31.3 pg (26-34); Mean Corpuscular Volume 97.6 fl (80-100); Mean Platelet Volume 11.6 fl (7.4-10.4); Monocytes Absolute Auto 0.5 K/mm3 (0.1-0.6); Neutrophils Percent Auto 74.9 % (45.5-73.1); Platelet Count Result 219 k/mm3 (150-375); Red Blood Count 4.99 M/mm3 (4.6-6.20); Red Cell Distribution Width 13.6 % (11.5-14.5); White Blood Count 6.7 K/mm3 (4.5-10.0)
[2022-04-30 10:26] LABS: Alanine Aminotransferase 664 U/L (6-50); Albumin Level 4.3 g/dL (3.5-5.1); Alkaline Phosphatase 149 U/L (38-126); Aspartate Amino Transferase 645 U/L (17-59); Bilirubin Direct 1.3 mg/dL (0-0.3); Bilirubin Indirect 1.9 mg/dL (0-1.1); Bilirubin,Total 4.3 mg/dL (0.2-1.3)
[2022-04-30 11:25] LABS: Hepatitis B Surface Antigen Negative (Negative)
[2022-04-30 11:31] LABS: HAV RESULT Negative (Negative); Hepatitis B Core IgM Result Negative (Negative)
[2022-04-30 11:43] LABS: Hepatitis C Virus Antibody Negative (Negative)
--- NOTE | 2022-04-30 13:19 | PM.CNGS ---
Assessment and Plan Assessment and plan (1) Acute cholecystitis: Code(s): K81.0 - Acute cholecystitis Status: Acute Assessment and Plan: imaging c/w cholecystitis, cholelithiasis, will need interval cholecystectomy, pt would like to have as outpt if possible, exam now benign, cont abx (2) Elevated LFTs: Code(s): R79.89 - Other specified abnormal findings of blood chemistry Status: Acute Assessment and Plan: likely secondary to choledocholithiasis, exam benign at this point, await further workup c labs and MRCP (3) Elevated lipase: Code(s): R74.8 - Abnormal levels of other serum enzymes Status: Acute Assessment and Plan: see above, no clinical s/s pancreatitis (4) Morbid obesity: Code(s): E66.01 - Morbid (severe) obesity due to excess calories Status: Acute Assessment and Plan: lifestyle and dietary modifications (5) Hypertension: Code(s): I10 - Essential (primary) hypertension Status: Acute Assessment and Plan: stable, mgmt per primary team (6) Alcohol abuse: Code(s): F10.10 - Alcohol abuse, uncomplicated Status: Acute Assessment and Plan: withdraw precautions History of Present Illness Consult details Consult date: 04/30/22 Reason for consult: abdominal pain Requesting physician: Ana Schumacher DO Narrative: Pt is a 67 y/o M presenting to ED c/o severe epigastric abd pain. Pt reports pain was abrupt in onset and was constant and severe. Pt reports pain was localized and did not radiate. Pt reports some assoc nausea and bloating. Pt reports similar episode a few mos ago that was less severe and lasted about a day. Review of Systems Constitutional: Constitutional: Reports anorexia, Denies chills, Denies fatigue, Denies fever(s), Denies lethargy, Denies malaise, Reports poor appetite, Denies weakness, Denies weight gain and Denies weight loss Eyes: Eyes: Reports no additional eye complaints ENT: Reports system reviewed and no additional complaints, except as documented Cardiovascular: Cardiovascular: Reports no additional cardiovascular complaints Respiratory: Respiratory: Reports no additional respiratory complaints Gastrointestinal: Gastrointestinal: Reports as per HPI, Reports abdominal pain, Reports bloating, Reports heartburn, Reports nausea, Denies vomiting and Denies hematemesis Genitourinary: Genitourinary: Reports no additional male genitourinary complaints Musculoskeletal: Musculoskeletal: Reports no additional musculoskeletal complaints Integumentary/Breasts: Skin/Breast: Reports system reviewed and no additional complaints, except as docu Neurologic: Reports system reviewed and no additional complaints, except as documented Psychiatric: Psychiatric: Reports no additional psychiatric complaints Endocrine: Endocrine: Reports no additional endocrine complaints Hematologic/Lymphatic: Hematologic/Lymphatic: Reports no additional hematologic/lymphatic complaints Allergic/Immunologic: Allergic/Immunologic: Reports no additional allergic/immunologic complaints PMFSH Past Medical History Medical History Arthritis BPH (benign prostatic hyperplasia) Bronchitis Hypertension Hypothyroid Pneumonia Sciatica Secondary erythrocytosis Surgical History Surgical History Hx of colonoscopy removed 4 polyps Family History Family History Mother Diabetes mellitus Father Dementia Skin cancer Sibling Hemochromatosis Social History Social History Social History: Patient lives with his , son and granddaughter. He drinks 2-3 alcoholic drinks per day with 2 shots per drink. No drug use. No history of IV drug use. Patient smoked up to 2-3 packs per day for 40 years (sissy
[2022-04-30] MEDS: FOLIC ACID 1 MG/0.2 ML INJ IV PUSH (13:21)
[2022-04-30] MEDS: THIAMINE HCL 200 MG/2 ML VIAL 100 MG IV PUSH (13:22)
[2022-04-30] MEDS: PANTOPRAZOLE SODIUM IV 40 MG VIAL IV PUSH ×2 (13:22→21:00)
[2022-04-30] MEDS: amLODIPine BESYLATE 5 MG TABLET PO (15:17)
[2022-04-30] MEDS: FINASTERIDE 5 MG TABLET PO (15:18)
[2022-04-30] MEDS: LEVOTHYROXINE SODIUM 100 MCG TABLET PO (15:18)
[2022-04-30] MEDS: LEVOTHYROXINE SODIUM 75 MCG TABLET PO (17:23)
[2022-05-01] MEDS: metroNIDAZOLE 500 MG/ISO 100ML 500 MG/100 ML BAG 100 MG IVPB ×4 (00:08→17:10)
[2022-05-01 05:04] LABS: Base Excess ABG -3.1 mEq/l (+/-2.0); Device ROOM AIR; Fractional Inspired Oxygen 21 %; HCO3 ABG 21.3 mEq/l (22.0-26.0); Modified Allen's Test Pass; Oxygen Content ABG 21.9 %vol (16.0-22.0); Oxygen Saturation ABG 96.2 % (95.0-100.0); Oxyhemoglobin 95.1 % THb (90.0-100.0); PCO2 ABG 36.6 mmHg (35.0-45.0); PO2 ABG 83.9 mmHg (80.0-100.0); Site Drawn RIGHT RADIAL; Total Hemoglobin 16.4 g/dL (12.0-18.0); pH ABG 7.383 (7.350-7.450)
[2022-05-01 05:32] VITALS: BP 157/64; PULSE 61; RESP 20; TEMP 36.7; O2SAT 100
[2022-05-01] MEDS: SODIUM CHLORIDE 0.9% IV 1,000 ML 125 ML IV CONT (05:45)
[2022-05-01] MEDS: LEVOTHYROXINE SODIUM 75 MCG TABLET PO (05:46)
[2022-05-01] MEDS: LEVOTHYROXINE SODIUM 100 MCG TABLET PO (05:46)
[2022-05-01 06:58] LABS: Basophils Absolute Auto 0.1 K/mm3 (0.0-0.1); Basophils Percent Auto 1.1 % (0.2-1.2); Eosinophils Absolute Auto 0.1 K/mm3 (0-0.3); Eosinophils Percent Auto 1.3 % (0-4.4); Hematocrit 46.2 % (42.0-52.0); Hemoglobin 15.2 g/dL (14.0-18.0); Immature Granulocyte Absolute 0.02 K/mm3 (0.00-0.031); Immature Granulocyte Percent A 0.4 % (0-0.5); Lymphocytes Absolute Auto 1.04 K/mm3 (0.9-3.2); Lymphocytes Percent Auto 19.9 % (18.3-44.2); Mean Corpuscular HGB Conc 32.9 g/dl (32-36); Mean Corpuscular Hemoglobin 31.7 pg (26-34); Mean Corpuscular Volume 96.3 fl (80-100); Monocytes Absolute Auto 0.5 K/mm3 (0.1-0.6); Monocytes Percent Auto 9.2 % (2.6-8.5); Neutrophils Absolute Auto 3.6 K/mm3 (1.3-6.7); Neutrophils Percent Auto 68.1 % (45.5-73.1); Platelet Count Result 197 k/mm3 (150-375); Red Cell Distribution Width 13.6 % (11.5-14.5); White Blood Count 5.2 K/mm3 (4.5-10.0)
[2022-05-01 07:09] LABS: Alanine Aminotransferase 702 U/L (6-50); Albumin Level 4.2 g/dL (3.5-5.1); Alkaline Phosphatase 154 U/L (38-126); Anion Gap 7 mmol/L (8-16); Aspartate Amino Transferase 469 U/L (17-59); Bilirubin,Total 4.3 mg/dL (0.2-1.3); Blood Urea Nitrogen 10 mg/dL (9-20); Calcium 8.7 mg/dL (8.4-10.2); Carbon Dioxide 27 mmol/L (22-30); Chloride 103 mmol/L (98-107); Estimated CRCL calculation 85 ml/min; Estimated Glomerular Filt Rate > 60; Glucose 107 mg/dL (65-110); Lipase 140 U/L (23-300); Magnesium 2.2 mg/dL (1.6-2.3); Potassium 4.3 mmol/L (3.4-5.0); Sodium 137 mmol/L (137-145)
[2022-05-01] MEDS: amLODIPine BESYLATE 5 MG TABLET PO (08:31)
[2022-05-01] MEDS: TAMSULOSIN HCL 0.4 MG CAPSULE PO (08:31)
[2022-05-01] MEDS: FINASTERIDE 5 MG TABLET PO (08:31)
[2022-05-01] MEDS: PANTOPRAZOLE SODIUM IV 40 MG VIAL IV PUSH (08:31)
[2022-05-01] MEDS: THIAMINE HCL 200 MG/2 ML VIAL 100 MG IV PUSH (08:31)
[2022-05-01] MEDS: lisinopriL 20 MG TABLET PO (08:32)
[2022-05-01] MEDS: FOLIC ACID 1 MG/0.2 ML INJ IV PUSH (08:33)
--- NOTE | 2022-05-01 09:07 | WPDGIPROGNO ---
Progress Note: A&P Assessment and Plan (1) Elevated LFTs: Code(s): R79.89 - Other specified abnormal findings of blood chemistry Status: Acute Assessment and Plan: his bilirubin remains over 4. His lipase has come down to normal. It was thought that elevated liver enzymes may be due to choledocholithiasis, but MRCP was normal ruling out common bile duct stone. There is a possibility he could have sludge in his distal common bile duct. We will continue to monitor his LFTs. (2) Elevated lipase: Code(s): R74.8 - Abnormal levels of other serum enzymes Status: Acute Assessment and Plan: Currently down to normal. And CT scan did not show any evidence of acute pancreatitis. From my perspective he can eat. (3) Alcohol abuse: Code(s): F10.10 - Alcohol abuse, uncomplicated Status: Acute Assessment and Plan: I discussed with him the importance of stopping alcohol. I told that he is developing cirrhosis. I discussed some of the complications of cirrhosis such as esophageal varices with hemorrhage, hepatic encephalopathy etcetera. (4) Acute cholecystitis: Code(s): K81.0 - Acute cholecystitis Status: Acute Assessment and Plan: He states that he was told he would have his gallbladder removed as an outpatient (5) Morbid obesity: Code(s): E66.01 - Morbid (severe) obesity due to excess calories Status: Acute Subjective Date/time seen: 05/01/22 09:07 he denies pain today. He tolerated clear liquids last night. He is not sure why he is NPO at this time. It is his understanding that he will have a cholecystectomy as an outpatient. HIDA scan confirmed hepatic dysfunction as there was no excretion of the dye. I explained to the patient that at this time it appears at the principal cause of his liver disease in abnormal chemistries is his alcohol abuse. He admits to 20 drinks a week, of bourbon. I told that he must stop drinking now because it appears that he is developing cirrhosis Review of Systems Review of Systems: All systems reviewed & are unremarkable except as noted in HPI and below Exam Const: General: alert Nutritional Appearance: obese Orientation/consciousness: patient oriented x3 Resp: Auscultation: clear to auscultation bilaterally Cardio: Rhythm: regular rhythm GI: GI Palp: Yes Soft to palpation, No Tenderness to palpation present (GI) and No Guarding due to palpation present (GI) Auscultation: normal bowel sounds Neuro: General: patient oriented x3 Objective Data Vital Signs Vital Signs: Vital Signs - 24 hr 04/30/22 14:00 04/30/22 21:52 04/30/22 20:00 Temperature 35.8 C L 36.7 C Pulse Rate 56 L 57 L Respiratory Rate 20 20 Blood Pressure 148/58 H 152/70 H Pulse Oximetry 97 98 Oxygen Delivery Room Air 04/30/22 23:26 05/01/22 05:32 05/01/22 08:00 Temperature 36.7 C Pulse Rate 61 Respiratory Rate 20 Blood Pressure 157/64 H Pulse Oximetry 97 100 Oxygen Delivery Room Air Room Air Intake/Output Intake/Output: Intake & Output 04/28/22 04/29/22 04/30/22 05/01/22 23:59 23:59 23:59 23:59 Intake Total 1450 1250 Output Total 1200 900 Balance 250 350 Meds/Results Medications: Active Medications Generic Name Dose Route Start Last Admin Trade Name Nataly PRN Reason Stop Dose Admin Amlodipine Besylate 5 mg 04/30/22 11:00 05/01/22 08:31 Amlodipine Besylate 5 Mg Tablet PO 05/31/22 10:59 5 mg DAILY DARIELA Administration Finasteride 5 mg 04/30/22 11:00 05/01/22 08:31 Finasteride 5 Mg Tablet PO 5 mg DAILY DARIELA Administration Folic Acid 1 mg 05/01/22 09:00 05/01/22 08:33 Folic Acid 1 Mg/0.2 Ml Inj IV PUSH 1 mg QAM DARIELA Administration Levofloxacin/Dextrose 750 mg in 150 mls @ 100 mls/hr 05/01/22 07:00 05/01/22 08:24 Levaquin 750 Mg/D5w 150 Ml IVPB Infused Q24H DARIELA Infusion Metronidazole 500 mg in 100 mls @ 100 mls/hr 04/30/22 11:00
[2022-05-01 09:16] LABS: Free T4 Free Thyroxine Reflex 1.62 ng/dL (0.78-2.19)
--- NOTE | 2022-05-01 10:28 | PM.PNGS ---
Progress Note: A&P Assessment and Plan (1) Acute cholecystitis: Code(s): K81.0 - Acute cholecystitis Status: Acute Assessment and Plan: pain is resolved while patient was in the emergency room and has not returned. No evidence of pancreatitis on MRI and lipase down to normal. Discussed with Dr. Yoon. Agree with restarting diet. If patient tolerates without recurrence of pain and liver enzymes improve, could go home tomorrow. (2) Elevated LFTs: Code(s): R79.89 - Other specified abnormal findings of blood chemistry Status: Acute Assessment and Plan: Still elevated. HIDA scan should just primary liver disease. Discussed with Dr. Yoon. Patient likely has significant primary liver disease. This could be associated with his secondary polycythemia. (3) Alcohol abuse: Code(s): F10.10 - Alcohol abuse, uncomplicated Status: Acute Assessment and Plan: Admits to 20 drinks of bourbon a week. (4) Secondary erythrocytosis: Code(s): D75.1 - Secondary polycythemia Status: Acute Assessment and Plan: Being treated with intermittent phlebotomy by Oncology. Subjective Subjective Date/Time Seen: 05/01/22 10:28 Patient reports: no new complaints, feels better ( not particularly hungry though), pain is less ( no abdominal pain since patient was in the emergency room) and afebrile Review of Systems Review of Systems: All systems reviewed & are unremarkable except as noted in HPI and below Constitutional: Constitutional: Denies chills and Denies fever(s) Cardiovascular: Cardiovascular: Denies chest pain and Denies dyspnea Respiratory: Respiratory: Denies cough and Denies dyspnea Gastrointestinal: Gastrointestinal: Reports as per HPI Integumentary/Breasts: Skin/Breast: Denies lesions and Denies rash Exam Const: General: cooperative, comfortable, no acute distress, alert and awake; No confusion Nutritional Appearance: obese Orientation/consciousness: patient oriented x3 and No confusion GI: Inspection: normal to inspection and obesity GI Palp: Yes Soft to palpation, No Tenderness to palpation present (GI), No Guarding due to palpation present (GI), Yes No hepatosplenomegaly present and No Rebound tenderness present Auscultation: normal bowel sounds Neuro: General: patient oriented x3, no focal motor deficits and No confusion Extrem: General: no calf tenderness and no edema Psych: Affect: normal affect Insight: Good insight present (Psych) Judgement: Good judgement present (Psych) Objective Data Vital Signs Vital Signs: Vital Signs - 24 hr 04/30/22 14:00 04/30/22 21:52 04/30/22 20:00 Temperature 35.8 C L 36.7 C Pulse Rate 56 L 57 L Respiratory Rate 20 20 Blood Pressure 148/58 H 152/70 H Pulse Oximetry 97 98 Oxygen Delivery Room Air 04/30/22 23:26 05/01/22 05:32 05/01/22 08:00 Temperature 36.7 C Pulse Rate 61 Respiratory Rate 20 Blood Pressure 157/64 H Pulse Oximetry 97 100 Oxygen Delivery Room Air Room Air Intake/Output Intake/Output: Intake & Output 04/28/22 04/29/22 04/30/22 05/01/22 23:59 23:59 23:59 23:59 Intake Total 1450 1250 Output Total 1200 900 Balance 250 350 Meds/Results Medications: Active Medications Generic Name Dose Route Start Last Admin Trade Name Nataly PRN Reason Stop Dose Admin Amlodipine Besylate 5 mg 04/30/22 11:00 05/01/22 08:31 Amlodipine Besylate 5 Mg Tablet PO 05/31/22 10:59 5 mg DAILY DARIELA Administration Finasteride 5 mg 04/30/22 11:00 05/01/22 08:31 Finasteride 5 Mg Tablet PO 5 mg DAILY DARIELA Administration Folic Acid 1 mg 05/01/22 09:00 05/01/22 08:33 Folic Acid 1 Mg/0.2 Ml Inj IV PUSH 1 mg QAM DARIELA Administration Levofloxacin/Dextrose 750 mg in 150 mls @ 100 mls/hr 05/01/22 07:00 05/01/22 08:24 Levaquin 750 Mg/D5w 150 Ml IVPB Infused Q24H DARIELA Infusion Metronidazole 500 mg in 100 mls @ 100 mls/hr
[2022-05-01 10:54] LABS: Total Triiodothyronine (T3) 0.83 NG/ML (0.97-1.69)
[2022-05-01 11:19] LABS: INR 1.1; Prothrombin Time 13.3 Seconds (11.1-14.7)
[2022-05-01] MEDS: ENOXAPARIN 40 MG/0.4 ML SYRINGE SUB-Q (11:20)
[2022-05-01 14:00] VITALS: BP 128/74; PULSE 93; RESP 20; TEMP 36.4; O2SAT 95
--- NOTE | 2022-05-01 14:15 | PM.IMPN ---
Progress Note: A&P Assessment and Plan (1) Acute cholecystitis: Code(s): K81.0 - Acute cholecystitis Status: Acute (2) Abdominal pain: Qualifiers: Abdominal location: epigastric Qualified Code(s): R10.13 - Epigastric pain Code(s): R10.9 - Unspecified abdominal pain Status: Acute (3) Elevated LFTs: Code(s): R79.89 - Other specified abnormal findings of blood chemistry Status: Acute (4) Elevated lipase: Code(s): R74.8 - Abnormal levels of other serum enzymes Status: Acute (5) Hypertension: Code(s): I10 - Essential (primary) hypertension Status: Acute (6) Alcohol abuse: Code(s): F10.10 - Alcohol abuse, uncomplicated Status: Acute (7) Secondary erythrocytosis: Code(s): D75.1 - Secondary polycythemia Status: Acute (8) Hypothyroid: Code(s): E03.9 - Hypothyroidism, unspecified Status: Acute (9) BPH (benign prostatic hyperplasia): Code(s): N40.0 - Benign prostatic hyperplasia without lower urinary tract symptoms Status: Acute (10) Morbid obesity: Code(s): E66.01 - Morbid (severe) obesity due to excess calories Status: Acute Plan Patient presents with acute onset abdominal pain in the epigastric region. This follows a week of milder symptoms. Does not appear to be associated with food but CT Abd was consistent with acute cholecystitis. Elevated liver enzymes are concerning for possible choledocholithiasis but ERCP showing diffuse hepatic steatosis and cholelithiasis but no choledocholithiasis. Hepatitis panel negative. HIDA scan shows retention activity in the liver suggesting liver dysfunction. He may have passed a stone given the fact that his pain is resolved. He could have acute alcoholic hepatitis as well. Repeat Lipase normal. Consider also biliary sludge in the biliary tree. LFTs slightly improved with AST dropping. Appreciate GenSurg and GI input. Monitor LFTs but consider ERCP if levels remains persistently high. Diet started and tolerating well. His current lifestyle choices are contributing to his medical problems and the benefits of leading a healthy lifestyle were discussed in detail with him again with present. ABG showing 7.38/36/84 on RA but ApneaLink showing AHI 38, RI 39 with lowest SpO2 72% but only hypoxic for total of 15 minutes. He was educated about the benefits of abstain from alcohol use. Continue thiamine and folate. Ativan available as needed for high CIWA scores but has not required this yet. Bladder noted to be distended so PVR checked but only 107mL. DVT prophylaxis: Lovenox Code status: full Subjective Date/time seen: 05/01/22 14:15 Interval history: 67yo male with hx of alcohol abuse, HTN and erythrocytosis here for abdominal pain. Patient feels well. No further abdominal pain. Toelrating oral intake without n/v. No CP or SOB. Family at bedside and they were updated with patient's permission. Exam Narrative: AF 98.1 157/64 61 20 100% ra Gen - NARD Chest - CTA bilaterally, nml RR CV - RRR S1/S2 Abd - soft, obese, NT Ext - no pedal edema Neuro - nonfocal Psych - normal mood and affect. He did become emotional when talking about the benefits of healthy lifestyle choices Skin - warm and dry. Objective Data Vital Signs Vital Signs: Vital Signs - 24 hr 04/30/22 21:52 04/30/22 20:00 04/30/22 23:26 Temperature 98.0 F Pulse Rate 57 L Respiratory Rate 20 Blood Pressure 152/70 H Pulse Oximetry 98 97 Oxygen Delivery Room Air Room Air 05/01/22 05:32 05/01/22 08:00 Temperature 98.1 F Pulse Rate 61 Respiratory Rate 20 Blood Pressure 157/64 H Pulse Oximetry 100 Oxygen Delivery Room Air Intake/Output Intake/Output: Intake & Output 04/28/22 04/29/22 04/30/22 05/01/22 23:59 23:59 23:59 23:59 Intake Total 1450 1450 Output Total 1200 900 Balance 250 550 Meds/Results Medications: Ac
[2022-05-01] MEDS: FAMOTIDINE 20 MG TABLET PO (20:30)
[2022-05-01 22:00] VITALS: BP 143/80; PULSE 88; RESP 18; TEMP 36.8; O2SAT 94
[2022-05-02] MEDS: metroNIDAZOLE 500 MG/ISO 100ML 500 MG/100 ML BAG 100 MG IVPB ×3 (00:12→12:26)
[2022-05-02 06:00] VITALS: BP 167/86; PULSE 72; RESP 18; TEMP 36.2; O2SAT 99
[2022-05-02] MEDS: LEVOTHYROXINE SODIUM 75 MCG TABLET PO (06:08)
[2022-05-02] MEDS: LEVOTHYROXINE SODIUM 100 MCG TABLET PO (06:08)
[2022-05-02 06:42] LABS: Hematocrit 49.4 % (42.0-52.0); Hemoglobin 16.3 g/dL (14.0-18.0); Mean Corpuscular Hemoglobin 31.8 pg (26-34); Mean Corpuscular Volume 96.3 fl (80-100); Platelet Count Result 200 k/mm3 (150-375); Red Blood Count 5.13 M/mm3 (4.6-6.20); Red Cell Distribution Width 13.8 % (11.5-14.5); White Blood Count 6.6 K/mm3 (4.5-10.0)
[2022-05-02 07:02] LABS: Alanine Aminotransferase 547 U/L (6-50); Albumin Level 4.5 g/dL (3.5-5.1); Alkaline Phosphatase 152 U/L (38-126); Anion Gap 9 mmol/L (8-16); Aspartate Amino Transferase 224 U/L (17-59); Bilirubin,Total 1.9 mg/dL (0.2-1.3); Blood Urea Nitrogen 11 mg/dL (9-20); Calcium 9.1 mg/dL (8.4-10.2); Carbon Dioxide 26 mmol/L (22-30); Chloride 102 mmol/L (98-107); Estimated CRCL calculation 85 ml/min; Estimated Glomerular Filt Rate > 60; Glucose 96 mg/dL (65-110); Lipase 98 U/L (23-300); Potassium 4.1 mmol/L (3.4-5.0); Sodium 137 mmol/L (137-145)
[2022-05-02] MEDS: amLODIPine BESYLATE 5 MG TABLET PO (09:01)
[2022-05-02] MEDS: lisinopriL 20 MG TABLET PO (09:01)
[2022-05-02] MEDS: ENOXAPARIN 40 MG/0.4 ML SYRINGE SUB-Q (09:01)
[2022-05-02] MEDS: TAMSULOSIN HCL 0.4 MG CAPSULE PO (09:02)
[2022-05-02] MEDS: FINASTERIDE 5 MG TABLET PO (09:02)
[2022-05-02] MEDS: FAMOTIDINE 20 MG TABLET PO (09:02)
[2022-05-02] MEDS: FOLIC ACID 1 MG TABLET PO (09:02)
[2022-05-02] MEDS: THIAMINE HCL 100 MG TABLET PO (09:02)
--- NOTE | 2022-05-02 10:10 | PM.PNGS ---
Progress Note: A&P Assessment and Plan (1) Acute cholecystitis: Code(s): K81.0 - Acute cholecystitis Status: Acute Assessment and Plan: tolerated low-fat diet yesterday without recurrence of abdominal pain. Okay to discharge from my standpoint. He will call the office tomorrow and make an appointment to see Dr. Huynh and proceed with outpatient laparoscopic cholecystectomy. (2) Elevated LFTs: Code(s): R79.89 - Other specified abnormal findings of blood chemistry Status: Acute Assessment and Plan: Improving (3) Alcohol abuse: Code(s): F10.10 - Alcohol abuse, uncomplicated Status: Acute Assessment and Plan: patient resolves to stop drinking (4) Morbid obesity: Code(s): E66.01 - Morbid (severe) obesity due to excess calories Status: Acute Assessment and Plan: patient plans to change his diet (5) Elevated lipase: Code(s): R74.8 - Abnormal levels of other serum enzymes Status: Resolved Subjective Subjective Date/Time Seen: 05/02/22 10:10 Patient reports: no new complaints ( no abdominal pain at all), feels better, tolerating a regular diet ( low-fat diet) and afebrile Review of Systems Review of Systems: All systems reviewed & are unremarkable except as noted in HPI and below Constitutional: Constitutional: Reports no additional constitutional complaints, Denies chills, Denies fever(s), Reports increased appetite and Denies night sweats Cardiovascular: Cardiovascular: Denies chest pain and Denies dyspnea Respiratory: Respiratory: Denies cough and Denies dyspnea Gastrointestinal: Gastrointestinal: Reports as per HPI, Denies abdominal pain, Denies bloating, Denies GI cramping, Denies heartburn, Denies nausea and Denies vomiting Integumentary/Breasts: Skin/Breast: Denies lesions and Denies rash Exam Const: General: cooperative, healthy appearing, comfortable, no acute distress, alert and awake; No confusion Nutritional Appearance: obese Orientation/consciousness: patient oriented x3 and No confusion Limitations: no limitations GI: Inspection: normal to inspection, non-distended and obesity GI Palp: Yes Soft to palpation, No Tenderness to palpation present (GI), No Guarding due to palpation present (GI), No Hepatosplenomegaly present, No Hernia present, No Palpable mass present, No Ascites present and No Rebound tenderness present Auscultation: normal bowel sounds Neuro: General: patient oriented x3, no focal motor deficits and No confusion Extrem: General: no calf tenderness and no edema Psych: Affect: normal affect Insight: Good insight present (Psych) Judgement: Good judgement present (Psych) Objective Data Vital Signs Vital Signs: Vital Signs - 24 hr 05/01/22 14:00 05/01/22 20:00 05/01/22 22:00 Temperature 36.4 C 36.8 C Pulse Rate 93 88 Respiratory Rate 20 18 Blood Pressure 128/74 143/80 H Pulse Oximetry 95 94 Oxygen Delivery Room Air 05/02/22 06:00 05/02/22 09:00 Temperature 36.2 C L Pulse Rate 72 Respiratory Rate 18 Blood Pressure 167/86 H Pulse Oximetry 99 Oxygen Delivery Room Air Intake/Output Intake/Output: Intake & Output 04/29/22 04/30/22 05/01/22 05/02/22 23:59 23:59 23:59 23:59 Intake Total 1450 2820 900 Output Total 1200 900 Balance 250 1920 900 Meds/Results Medications: Active Medications Generic Name Dose Route Start Last Admin Trade Name Freq PRN Reason Stop Dose Admin Acetaminophen 500 mg 05/01/22 10:26 Acetaminophen 500 Mg Tablet PO Q6H PRN Mild Pain (1-3) or Fever Hydrocodone Bitart/Acetaminophen 1 tab 05/01/22 10:26 Hydrocodone/Acetaminophen (*Crx) 5-325 Mg Tablet PO Q4H PRN Pain Rated 4-6 Amlodipine Besylate 5 mg 04/30/22 11:00 05/02/22 09:01 Amlodipine Besylate 5 Mg Tablet PO 05/31/22 10:59 5 mg DAILY DARIELA Administration Enoxaparin Sodium 40 mg 05/02/22 09:00 05/02/22 09:01 Enoxaparin 40
--- NOTE | 2022-05-02 10:14 | WPDGIPROGNO ---
Progress Note: A&P Assessment and Plan (1) Elevated LFTs: Code(s): R79.89 - Other specified abnormal findings of blood chemistry Status: Acute Assessment and Plan: his bilirubin remains over 4. His lipase has come down to normal. It was thought that elevated liver enzymes may be due to choledocholithiasis, but MRCP was normal ruling out common bile duct stone. There is a possibility he could have sludge in his distal common bile duct. We will continue to monitor his LFTs. 05/02 today his bilirubin is down to 1.9. Transaminases also are much lower. (2) Elevated lipase: Code(s): R74.8 - Abnormal levels of other serum enzymes Status: Resolved Assessment and Plan: Currently down to normal. And CT scan did not show any evidence of acute pancreatitis. From my perspective he can eat. 05/02 he is tolerating his low-fat diet. Discussed the diet with him and told him he needs to be on low-fat diet for the next several weeks if not permanently. I gave him examples awake constitutes fat in the diet such as fried foods, meats that are not lean, potato chips a yolk (3) Alcohol abuse: Code(s): F10.10 - Alcohol abuse, uncomplicated Status: Acute Assessment and Plan: I discussed with him the importance of stopping alcohol. I told that he is developing cirrhosis. I discussed some of the complications of cirrhosis such as esophageal varices with hemorrhage, hepatic encephalopathy etcetera. 05/02 we again talked about liver disease and cirrhosis due to alcohol. I told he truly needs to cut back on his bourbon if not to stop it altogether. He promises he is going to try to do (4) Acute cholecystitis: Code(s): K81.0 - Acute cholecystitis Status: Acute Assessment and Plan: He states that he was told he would have his gallbladder removed as an outpatient (5) Morbid obesity: Code(s): E66.01 - Morbid (severe) obesity due to excess calories Status: Acute Assessment and Plan: I discussed diet not only in terms of his overall health but how it will contribute to cirrhosis but causing fatty changes Plan 05/02 fromour perspective he could be discharged today but he should follow up with Dr. Yuan in the office in 4 weeks Subjective Date/time seen: 05/01/22? 09:07 ?he denies pain today.? He tolerated clear liquids last night.? He is not sure why he is NPO at this time.? It is his understanding that he will have a cholecystectomy as an outpatient.? HIDA scan confirmed hepatic dysfunction as there was no excretion of the dye.? I explained to the patient that at this time it appears at the principal cause of his liver disease in abnormal chemistries is his alcohol abuse.? He admits to 20 drinks a week, of bourbon.? I told that he must stop drinking now because it appears that he is developing cirrhosis. 05/02/22 10:14 Tolerating low-fat diet. Liver enzymes are improving suggesting he may have had sludge or stone in common bile duct that past. The plan is for him to have an outpatient cholecystectomy. Will have follow-up in our office to ensure that his liver enzymes have returned to normal. Exam Const: General: alert Nutritional Appearance: obese Orientation/consciousness: patient oriented x3 Resp: Auscultation: clear to auscultation bilaterally Cardio: Rhythm: regular rhythm GI: Auscultation: normal bowel sounds Neuro: General: patient oriented x3 Objective Data Vital Signs Vital Signs: Vital Signs - 24 hr 05/01/22 14:00 05/01/22 20:00 05/01/22 22:00 Temperature 36.4 C 36.8 C Pulse Rate 93 88 Respiratory Rate 20 18 Blood Pressure 128/74 143/80 H Pulse Oximetry 95 94 Oxygen Delivery Room Air 05/02/22 06:00 05/02/22 09:00 Temperature 36.2 C L Pulse Rate 72 Respiratory Rate 18 Blood Pressure 167/86 H Pulse Oximetry 99 Oxygen Delivery Room Air Intake/Output Intake/Output: Intake & Output 04/29/22
[2022-05-02 14:00] VITALS: BP 120/74; PULSE 86; RESP 20; TEMP 36.6; O2SAT 95
--- NOTE | 2022-05-02 15:03 | PM.DS ---
DS: Admitting Diagnosis Discharge Date 05/02/22 Admitting Diagnosis Abdominal pain DS: Discharge Diagnosis Discharge Diagnosis (1) Acute cholecystitis: Code(s): K81.0 - Acute cholecystitis Status: Acute (2) Abdominal pain: Qualifiers: Abdominal location: epigastric Qualified Code(s): R10.13 - Epigastric pain Code(s): R10.9 - Unspecified abdominal pain Status: Acute (3) Elevated LFTs: Code(s): R79.89 - Other specified abnormal findings of blood chemistry Status: Acute (4) Elevated lipase: Code(s): R74.8 - Abnormal levels of other serum enzymes Status: Resolved (5) Hypertension: Code(s): I10 - Essential (primary) hypertension Status: Acute (6) Alcohol abuse: Code(s): F10.10 - Alcohol abuse, uncomplicated Status: Acute (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 Please see H&P for details. Hospital Course: Patient presented with acute onset abdominal pain in the epigastric region. This follows a week of milder symptoms. Does not appear to be associated with food but CT Abd was consistent with acute cholecystitis. Elevated liver enzymes were concerning for possible choledocholithiasis but ERCP showing diffuse hepatic steatosis and cholelithiasis but no choledocholithiasis. Hepatitis panel was negative. HIDA scan shows retention activity in the liver suggesting liver dysfunction. He may have passed a stone given the fact that his pain resolved quickly. He could have acute alcoholic hepatitis as well. Lipase was mildly elevated but normal on repeat. Consider also biliary sludge in the biliary tree. LFTs on repeat. GenSurg and GI consulted and appreciate their input. Diet started and advanced; he tolerated this well. His current lifestyle choices are contributing to his medical problems and the benefits of leading a healthy lifestyle were discussed in detail with him including avoiding all alcohol containing products. He was monitored with CIWA protocol but he did not develop symptoms of alcohol withdrawal. He was started on thiamine and folate. ABG showing 7.38/36/84 on RA. ApneaLink showing AHI 38, RI 39 with lowest SpO2 72% but only hypoxic for total of 15 minutes. Bladder noted to be distended by imaging so PVR checked but only 107mL. He had no recurrence of the abdominal pain. Tolerating oral intake. He feels well and is ready for discharge. He overall did well and was able to be discharged home on 05/02/22 in stable condition Status at Discharge Cognitive/behavioral status at discharge: stable Time Spent with Patient Time attestation: Total time spent providing and/or coordinating discharge services: 34 miutes Time spent: Greater than 30 minutes Exam Narrative: AF 97.8 120/74 86 20 95% ra Gen - NARD Chest - CTA bilaterally, nml RR CV - RRR S1/S2 Abd - soft, obese, NT Ext - trace pedal edema Psych - normal mood and affect. Skin - warm and dry. DS: Data Data Completed and Pending Labs on day of discharge: Labs from last 24 hours 05/02/22 05/02/22 06:10 06:10 WBC 6.6 RBC 5.13 Hgb 16.3 Hct 49.4 MCV 96.3 MCH 31.8 MCHC 33.0 RDW 13.8 Plt Count 200 MPV 12.0 H Sodium 137 Potassium 4.1 Chloride 102 Carbon Dioxide 26 Anion Gap 9 BUN 11 Creatinine 1.10 Estim Creat Clear Calc 85 Estimated GFR > 60 Glucose 96 C
== END 2022-05-02 15:35 | disposition home or self-care (01) ==
LOC: ANHED 04-30 03:09 → ANH3MEDSUR 04-30 04:05
PROVIDERS: Internal Medicine; Internal Medicine Gastroenterology; Surgery; Admitting Provider Internal Medicine; Emergency Provider Emergency Medicine; PCP Internal Medicine; Visit Provider Internal Medicine
DX: K81.0 Acute cholecystitis (principal); R10.13 Epigastric pain; R79.89 Other specified abnormal findings of blood chemistry; R74.8 Abnormal levels of other serum enzymes; D75.1 Secondary polycythemia; Z79.82 Long term (current) use of aspirin; I10 Essential (primary) hypertension; E03.9 Hypothyroidism, unspecified; N40.0 Benign prostatic hyperplasia without lower urinary tract symptoms; Z87.891 Personal history of nicotine dependence; F10.10 Alcohol abuse, uncomplicated; E66.01 Morbid (severe) obesity due to excess calories; Z68.41 Body mass index [BMI] 40.0-44.9, adult
CPT/HCPCS: 36415; 36600; 74176; 74183; 76376; 76705; 78226; 80053; 80074; 80076; 81001; 82805; 83690; 83735; 84439; 84443; 84480; 85025; 85027; 85610; 93005; 94762; 96361; 96365; 96366; 96367; 96372; 96375; 96376; 99285; A9270; A9537; A9577; C9113; G0378; J1650; J1956; J2270; J3411; J7030

== ENCOUNTER 2022-05-07 13:35 | Outpatient (CLI) | payer OTHER, SELFPAY ==
[2022-05-07 15:38] LABS: Alanine Aminotransferase 157 U/L (6-50); Albumin Level 4.8 g/dL (3.5-5.1); Alkaline Phosphatase 133 U/L (38-126); Anion Gap 11 mmol/L (8-16); Aspartate Amino Transferase 59 U/L (17-59); Bilirubin,Total 1.2 mg/dL (0.2-1.3); Blood Urea Nitrogen 13 mg/dL (9-20); Calcium 9.3 mg/dL (8.4-10.2); Carbon Dioxide 21 mmol/L (22-30); Chloride 103 mmol/L (98-107); Estimated Glomerular Filt Rate > 60; Glucose 85 mg/dL (65-110); Potassium 4.7 mmol/L (3.4-5.0); Sodium 135 mmol/L (137-145)
== END 2022-05-07 13:36 | disposition home or self-care (01) ==
LOC: ANHLAB 13:36
PROVIDERS: Internal Medicine; PCP Internal Medicine; Visit Provider Internal Medicine Hematology & Oncology
DX: R79.89 Other specified abnormal findings of blood chemistry (principal)
CPT/HCPCS: 36415; 80053

== ENCOUNTER 2022-05-13 12:06 | Outpatient (CLI) | payer OTHER, SELFPAY ==
[2022-05-13 15:00] LABS: Alanine Aminotransferase 86 U/L (6-50); Albumin Level 4.5 g/dL (3.5-5.1); Alkaline Phosphatase 102 U/L (38-126); Amylase 98 U/L (30-110); Aspartate Amino Transferase 51 U/L (17-59); Bilirubin,Total 0.9 mg/dL (0.2-1.3)
== END 2022-05-13 12:07 | disposition home or self-care (01) ==
PROVIDERS: PCP Internal Medicine; Visit Provider Surgery
DX: Z01.812 Encounter for preprocedural laboratory examination (principal); K80.10 Calculus of gallbladder with chronic cholecystitis without obstruction
CPT/HCPCS: 36415; 80076; 82150; 86850; 86900; 86901

== ENCOUNTER 2022-05-19 02:38 | Day surgery (SDC) | payer OTHER, SELFPAY ==
[2022-05-11 10:41] VITALS: BMI 42.6
--- NOTE | 2022-05-11 11:04 | PC.NURSE ---
Report to the Outpatient Waiting Room, entrance under the green pavilion located off [facility], at time _1100_ on date _05/19/22_. OR Time: _1 PM_. - You and your visitor will be asked a series of questions to screen for COVID 19 for your protection. - Only one visitor is allowed at this time. - The patient visitor is requested to leave or wait in car when not with patient. - A mask is required within the hospital. Patients may have clear liquids (water, carbonated beverages, clear teas, apple juice) until 3 hours prior to surgery (1000 AM) with a maximum of 20 ounces. - No food from midnight until time of surgery Take the following medications with a SIP of water the morning of surgery: _AMLODIPINE, LEVOTHYROXINE_ Medications to discontinue per DR. HUMMEL - _STARTING 05/12/22 DECREASE ASPIRING TO 81MG DAILY UNTIL SURGERY_ Please no deodorant, or body powder the day of surgery. No jewelry (including any body piercings) or valuables the day of surgery, leave them at home. Please take a shower or bath the night before, or the morning of, surgery with an antibacterial soap. Wear comfortable, loose fitting clothing. - Jewelry must be removed prior to entering the operating room. Rings and piercings that are not removed may be cut off. - The hospital will not accept responsibility for valuables. - Please leave all valuables, including medications, at home the day of surgery. If you are going home after surgery, a licensed company truck driver must drive you home. - NO public transportation without another adult. - We recommend that an adult stay with you for 24 hours following discharge. - We also recommend that you do not drive, make important decision, drink alcoholic beverages, or take any drugs that were not prescribed by your health care provider for at least 24 hours after your discharge time. Follow any additional instructions given to you from DR. HUMMEL. FITZNS SHOWER AM OF SURGERY If you or anyone in your household have experienced Covid symptoms in the past week, please notify your surgeon or the nurse liaison at the phone number below for possible testing. Telephone instructions given to ____PT and asked if any additional questions and then verbalized understanding. Patient advised to call surgeon office or pre surgery nurse liaison [phone] if any additional questions.
[2022-05-19] VITALS (9 sets, daily range): BP systolic 107–144; BP diastolic 49–93; PULSE 63–109; RESP 12–20; TEMP 36.3; O2SAT 96–100
[2022-05-19] MEDS: KETOROLAC 15 MG/ML VIAL (*BKC) IV PUSH (10:41)
[2022-05-19] MEDS: LACTATED RINGERS 1,000 ML 30 ML IV CONT ×2 (10:41→13:08)
[2022-05-19] MEDS: ACETAMINOPHEN 500 MG TABLET 1000 MG PO (10:41)
--- NOTE | 2022-05-19 11:34 | WPDHPUPDATE1 ---
History and Physical Update Update Date/Time: 05/19/22 11:34 History and Physical has been reviewed, including an updated exam of the patient. There are NO changes in the patient's condition. Risks, benefits, and alternatives have been discussed and questions answered. Patient agrees to proceed with procedure.
[2022-05-19] MEDS: MIDAZOLAM HCL (*CRX) 2 MG/2 ML VIAL IV PUSH (11:43)
[2022-05-19] MEDS: ceFAZolin 3 GM/D5W 100 ML 100 ML IVPB (12:03)
[2022-05-19] MEDS: LIDO 1%/EPINEPHRINE/PF 1:200,000 30 ML VIAL XX (12:39)
--- NOTE | 2022-05-19 12:57 | W.PM.PROC2 ---
Procedure Note - Detailed Date of Procedure 05/19/22 Pre-op Diagnosis cholecystitis with cholelithiasis Post-op Diagnosis Same Procedure Performed Laparoscopic cholecystectomy Surgeon Marilu Huynh MD Anesthesia General Indications 67 y/o M c cholecystitis, cholelithiasis Findings cholecystitis, cholelithiasis Description of Procedure The patient was taken to the operating room placed in the supine position. After adequate induction of general anesthesia, the patient was prepped and draped in normal sterile fashion. A time-out was then performed to verify the patient's identity as well as the procedure being performed. I then made a 5 mm incision in the infraumbilical region. Through this, a Veress needle was placed into the peritoneal cavity and CO2 gas was then insufflated. After adequate pneumoperitoneum was achieved, the Veress needle was removed and a 5 mm optiview trocar was placed through this incision under direct visualization. I then placed the laparoscope through this trocar site and under direct visualization placed a further 12 mm subxiphoid port as well as 2 additional 5 mm ports in the right upper abdomen. The gallbladder was then identified and was noted to be moderately inflamed, distended, and full of gallstones. I was able to place a grasper at the dome of the gallbladder and this was retracted anterior and cephalad up over the liver. A 2nd retractor was then placed at the infundibulum and retracted laterally, this allowed visualization of the triangle of Calot. I then was able to visualize the cystic duct in its entirety from its proximal insertion into the gallbladder, to its distal junction with the common hepatic/common bile duct junction. At this point, I carefully skeletonized the proximal cystic duct with the [place] dissector. I then clipped and transected the proximal cystic duct. Next I visualized the cystic artery. Again the artery was skeletonized, clipped, and transected. I then used the Bovie cautery to take down the peritoneal attachments of the gallbladder off the liver bed. This was somewhat difficult given the amount of inflammation in the posterior space. Once the gallbladder specimen was completely detached, an endo-pouch was placed through the 12 mm port site. I then placed the gallbladder specimen into the Endo pouch and removed the endo-pouch from the 12 mm port site. The specimen will now be sent to pathology for further review. I then copiously irrigated the right upper quadrant. Hemostasis was noted in the liver bed, the clips were noted to be in good position on both the cystic duct stump and the cystic artery stump. No other pathology was noted in the right upper quadrant. I then moved the laparoscope to the subxiphoid port. No iatrogenic injury or other pathology was noted in the lower abdomen. I then closed the 12 mm trocar site under direct visualization using the Kiko cone and 0 Vicryl suture. At this point, the abdomen was desufflated and all ports removed. All port sites were then closed with 4.O Monocryl subcuticular sutures. Dermabond was placed on each incision. The patient tolerated the procedure well, was extubated in the operating room postoperative and will be transferred to the recovery room in stable condition Estimated Blood Loss 5 Drains No Packing No Pathology Yes Complications No immediate complications Condition Stable Disposition PACU [facility] Billing Surgery - Charge Forward: Surgery Billing
[2022-05-19] MEDS: fentaNYL CITRATE INJ (*CRX) 100 MCG/2 ML VIAL 25 MCG IV PUSH ×8 (13:20→13:40)
[2022-05-19] MEDS: ONDANSETRON INJ 4 MG/2 ML VIAL IV PUSH (13:22)
[2022-05-19] MEDS: oxyCODONE HCL (*CRX) 5 MG TAB IR PO (14:35)
== END 2022-05-19 15:20 | disposition home or self-care (01) ==
PROVIDERS: PCP Internal Medicine; Visit Provider Surgery
PROC: 0FT44ZZ Resection of Gallbladder, Percutaneous Endoscopic Approach (ICD-10-PCS; CPT 47562; principal; 2022-05-19 12:00)
DX: K80.10 Calculus of gallbladder with chronic cholecystitis without obstruction (principal); I10 Essential (primary) hypertension; E03.9 Hypothyroidism, unspecified; N40.0 Benign prostatic hyperplasia without lower urinary tract symptoms; Z87.891 Personal history of nicotine dependence; Z79.82 Long term (current) use of aspirin; E66.01 Morbid (severe) obesity due to excess calories; F10.10 Alcohol abuse, uncomplicated; Z68.41 Body mass index [BMI] 40.0-44.9, adult
CPT/HCPCS: 47562; 88304; A9270; J0330; J0690; J1100; J1170; J1885; J2250; J2370; J2405; J2704; J2710; J3010; J7120

== ENCOUNTER 2022-06-07 14:46 | Outpatient (CLI) | payer OTHER, SELFPAY ==
[2022-06-07 15:50] LABS: Basophils Percent Auto 0.7 % (0.2-1.2); Eosinophils Absolute Auto 0.1 K/mm3 (0-0.3); Eosinophils Percent Auto 1.9 % (0-4.4); Hematocrit 49.4 % (42.0-52.0); Hemoglobin 15.7 g/dL (14.0-18.0); Immature Granulocyte Absolute 0.01 K/mm3 (0.00-0.031); Immature Granulocyte Percent A 0.2 % (0-0.5); Immature Platelet Fraction Pct 17.6 % (0.9-11.2); Lymphocytes Percent Auto 24.1 % (18.3-44.2); Mean Corpuscular HGB Conc 31.8 g/dl (32-36); Mean Corpuscular Hemoglobin 30.8 pg (26-34); Mean Corpuscular Volume 97.1 fl (80-100); Mean Platelet Volume 13.4 fl (7.4-10.4); Monocytes Absolute Auto 0.4 K/mm3 (0.1-0.6); Monocytes Percent Auto 9.6 % (2.6-8.5); Neutrophils Absolute Auto 2.6 K/mm3 (1.3-6.7); Neutrophils Percent Auto 63.5 % (45.5-73.1); Platelet Count Result 169 k/mm3 (150-375); Red Blood Count 5.09 M/mm3 (4.6-6.20); White Blood Count 4.2 K/mm3 (4.5-10.0)
[2022-06-07 16:00] LABS: Alanine Aminotransferase 74 U/L (6-50); Albumin Level 4.4 g/dL (3.5-5.1); Alkaline Phosphatase 92 U/L (38-126); Anion Gap 9 mmol/L (8-16); Aspartate Amino Transferase 58 U/L (17-59); Bilirubin,Total 0.7 mg/dL (0.2-1.3); Blood Urea Nitrogen 13 mg/dL (9-20); Calcium 9.1 mg/dL (8.4-10.2); Carbon Dioxide 22 mmol/L (22-30); Chloride 108 mmol/L (98-107); Estimated Glomerular Filt Rate > 60; Glucose 101 mg/dL (65-110); Potassium 4.3 mmol/L (3.4-5.0); Sodium 139 mmol/L (137-145)
[2022-06-09 15:46] LABS: Cholesterol 151 mg/dL (0-200); HDL Direct 28 mg/dL; Triglycerides 127 mg/dL (<150)
[2022-06-09 15:57] LABS: LDL Cholesterol Direct 79 mg/dL
[2022-06-10 11:50] LABS: Prostate Specific Antigen 1.1 ng/mL (< OR = 4.0)
== END 2022-06-07 14:47 | disposition home or self-care (01) ==
LOC: ANHLAB 14:48
PROVIDERS: PCP Internal Medicine; Visit Provider Internal Medicine
DX: D75.1 Secondary polycythemia (principal); R35.0 Frequency of micturition; I10 Essential (primary) hypertension; E78.5 Hyperlipidemia, unspecified
CPT/HCPCS: 36415; 80053; 80061; 84153; 84154; 85025; 85055

== ENCOUNTER 2022-06-24 16:17 | Outpatient (CLI) | payer OTHER, SELFPAY ==
[2022-06-24 16:54] LABS: Basophils Percent Auto 0.7 % (0.2-1.2); Eosinophils Absolute Auto 0.1 K/mm3 (0-0.3); Eosinophils Percent Auto 1.6 % (0-4.4); Hematocrit 48.4 % (42.0-52.0); Hemoglobin 15.3 g/dL (14.0-18.0); Immature Granulocyte Absolute 0.01 K/mm3 (0.00-0.031); Immature Granulocyte Percent A 0.2 % (0-0.5); Immature Platelet Fraction Pct 14.9 % (0.9-11.2); Lymphocytes Absolute Auto 1.33 K/mm3 (0.9-3.2); Lymphocytes Percent Auto 21.8 % (18.3-44.2); Mean Corpuscular HGB Conc 31.6 g/dl (32-36); Mean Corpuscular Hemoglobin 30.1 pg (26-34); Mean Corpuscular Volume 95.3 fl (80-100); Monocytes Absolute Auto 0.6 K/mm3 (0.1-0.6); Monocytes Percent Auto 10.3 % (2.6-8.5); Neutrophils Percent Auto 65.4 % (45.5-73.1); Platelet Count Result 199 k/mm3 (150-375); Red Blood Count 5.08 M/mm3 (4.6-6.20); White Blood Count 6.1 K/mm3 (4.5-10.0)
[2022-06-24 17:02] LABS: Alanine Aminotransferase 54 U/L (6-50); Albumin Level 4.5 g/dL (3.5-5.1); Alkaline Phosphatase 92 U/L (38-126); Aspartate Amino Transferase 35 U/L (17-59); Bilirubin,Total 0.7 mg/dL (0.2-1.3)
== END 2022-06-24 16:18 | disposition home or self-care (01) ==
LOC: ANHLAB 16:19
PROVIDERS: PCP Internal Medicine; Visit Provider Internal Medicine Gastroenterology
DX: R79.89 Other specified abnormal findings of blood chemistry (principal); K81.0 Acute cholecystitis
CPT/HCPCS: 36415; 80076; 85025; 85055

== ENCOUNTER 2023-06-13 15:43 | Outpatient (CLI) | payer OTHER, SELFPAY ==
[2023-06-13 16:12] LABS: Hematocrit 50.9 % (42.0-52.0); Hemoglobin 16.6 g/dL (14.0-18.0); Mean Corpuscular HGB Conc 32.6 g/dl (32-36); Mean Platelet Volume 12.6 fl (7.4-10.4); Platelet Count Result 175 k/mm3 (150-375); Red Blood Count 5.53 M/mm3 (4.6-6.20); White Blood Count 6.6 K/mm3 (4.5-10.0)
[2023-06-13 16:24] LABS: Alanine Aminotransferase 40 U/L (6-50); Albumin Level 4.5 g/dL (3.5-5.1); Alkaline Phosphatase 112 U/L (38-126); Anion Gap 9 mmol/L (8-16); Aspartate Amino Transferase 32 U/L (17-59); Bilirubin,Total 0.5 mg/dL (0.2-1.3); Blood Urea Nitrogen 16 mg/dL (9-20); Calcium 9.3 mg/dL (8.4-10.2); Carbon Dioxide 22 mmol/L (22-30); Chloride 105 mmol/L (98-107); Cholesterol 168 mg/dL (0-200); Estimated Glomerular Filt Rate > 60; Glucose 115 mg/dL (65-110); HDL Direct 42 mg/dL; Potassium 4.5 mmol/L (3.4-5.0); Sodium 136 mmol/L (137-145); Triglycerides 96 mg/dL (<150)
[2023-06-13 16:34] LABS: LDL Cholesterol Direct 94 mg/dL
[2023-06-13 16:54] LABS: Prostate Specific Antigen 1.1 ng/mL (< OR = 4.0)
== END 2023-06-13 15:44 | disposition home or self-care (01) ==
LOC: ANHLAB 15:45
PROVIDERS: PCP Internal Medicine; Visit Provider Internal Medicine
DX: Z00.00 Encounter for general adult medical examination without abnormal findings (principal); D75.1 Secondary polycythemia; I10 Essential (primary) hypertension
CPT/HCPCS: 36415; 80053; 80061; 84153; 85027; G0103

== ENCOUNTER 2023-07-07 15:09 | Outpatient (CLI) | payer OTHER, SELFPAY ==
--- NOTE | ~2023-07-07 | CT_ITS ---
EXAMINATION: CT brain wo con DATE: 07/07/2023 15:31 INDICATION: Olfactory agnosia. TECHNIQUE: Computed tomography (CT) of the head was performed without intravenous contrast. The mA wa s adjusted according to patient size. Iterative reconstruction technique was employed. The dose-lengt h product was 605.33 mGy-cm. COMPARISON: Head CT 12/19/2008 FINDINGS: There is no intracranial hemorrhage, acute infarction, or abnormal intracranial mass lesion . There are scattered areas of low attenuation in the cerebral white matter, which is within normal l imits for the patient's age. The ventricles are normal in size. The orbits are normal. There is mild mucosal thickening in the ethmoid sinuses. The mastoid air cells are normal. IMPRESSION: 1. Normal aging brain. Reviewed, dictated and finalized at location A. IMPRESSION: 1. Normal aging brain.
== END 2023-07-07 15:10 | disposition home or self-care (01) ==
PROVIDERS: PCP Internal Medicine; Visit Provider Internal Medicine
DX: R48.1 Agnosia (principal); J32.9 Chronic sinusitis, unspecified
CPT/HCPCS: 70450

== ENCOUNTER 2023-11-18 13:13 | Outpatient (CLI) | payer OTHER, SELFPAY ==
--- NOTE | ~2023-11-18 | US_ITS ---
EXAMINATION:US venous doppler LE LT INDICATION:Leg swelling TECHNIQUE: Multiple grayscale, color flow and Doppler images of the left lower extremity deep venous systems were obtained and reviewed. COMPARISON:10/21/2021 FINDINGS: The common femoral, superficial femoral and popliteal veins demonstrate normal respiratory variation, augmentation and compressibility. Color flow is also seen within the posterior tibial, pe roneal, greater saphenous and profunda veins. IMPRESSION: 1: No lower extremity deep venous thrombosis. Reviewed, dictated and finalized at location A. UP DRIVER
== END 2023-11-18 13:14 | disposition home or self-care (01) ==
LOC: ANHIMG 13:16
PROVIDERS: PCP Internal Medicine; Visit Provider Nurse Practitioner Family
DX: M79.89 Other specified soft tissue disorders (principal)
CPT/HCPCS: 93971

== ENCOUNTER 2024-03-16 15:11 | Outpatient (CLI) | payer OTHER, SELFPAY ==
[2024-03-16 15:24] LABS: Basophils Absolute Auto 0.1 K/mm3 (0.0-0.1); Basophils Percent Auto 0.9 % (0.2-1.2); Eosinophils Absolute Auto 0.1 K/mm3 (0-0.3); Eosinophils Percent Auto 1.4 % (0-4.4); Hematocrit 49.8 % (42.0-52.0); Hemoglobin 16.1 g/dL (14.0-18.0); Immature Granulocyte Absolute 0.02 K/mm3 (0.00-0.031); Immature Granulocyte Percent A 0.3 % (0-0.5); Lymphocytes Absolute Auto 1.76 K/mm3 (0.9-3.2); Lymphocytes Percent Auto 27.6 % (18.3-44.2); Mean Corpuscular HGB Conc 32.3 g/dl (32-36); Mean Corpuscular Hemoglobin 30.2 pg (26-34); Mean Corpuscular Volume 93.4 fl (80-100); Mean Platelet Volume 11.9 fl (7.4-10.4); Monocytes Absolute Auto 0.4 K/mm3 (0.1-0.6); Monocytes Percent Auto 6.6 % (2.6-8.5); Neutrophils Percent Auto 63.2 % (45.5-73.1); Platelet Count Result 202 k/mm3 (150-375); Red Blood Count 5.33 M/mm3 (4.6-6.20); White Blood Count 6.4 K/mm3 (4.5-10.0)
[2024-03-16 16:36] LABS: Iron 96 ug/dL (49-181)
[2024-03-16 16:37] LABS: Anion Gap 8 mmol/L (4-12); Blood Urea Nitrogen 15 mg/dL (9-20); Calcium 9.5 mg/dL (8.4-10.2); Carbon Dioxide 25 mmol/L (22-30); Chloride 103 mmol/L (98-107); Estimated Glomerular Filt Rate > 60; Glucose 128 mg/dL (65-110); Potassium 4.5 mmol/L (3.4-5.0); Sodium 136 mmol/L (137-145)
[2024-03-16 16:46] LABS: Percent Iron Saturation 30 % (20-50)
== END 2024-03-16 15:12 | disposition home or self-care (01) ==
PROVIDERS: Nurse Practitioner Family; PCP Internal Medicine; Visit Provider Internal Medicine Hematology & Oncology
DX: D75.1 Secondary polycythemia (principal); E83.19 Other disorders of iron metabolism
CPT/HCPCS: 36415; 80048; 82728; 83540; 83550; 85025

== ENCOUNTER 2024-06-21 14:31 | Outpatient (CLI) | payer OTHER, SELFPAY ==
[2024-06-21 15:20] LABS: Alanine Aminotransferase 37 U/L (6-50); Albumin Level 4.8 g/dL (3.5-5.1); Alkaline Phosphatase 96 U/L (38-126); Anion Gap 11 mmol/L (4-12); Aspartate Amino Transferase 33 U/L (17-59); Bilirubin,Total 1.1 mg/dL (0.2-1.3); Blood Urea Nitrogen 12 mg/dL (9-20); Calcium 9.4 mg/dL (8.4-10.2); Carbon Dioxide 26 mmol/L (22-30); Chloride 100 mmol/L (98-107); Cholesterol 172 mg/dL (0-200); Estimated Glomerular Filt Rate > 60; Glucose 109 mg/dL (65-110); HDL Direct 39 mg/dL; Potassium 4.3 mmol/L (3.4-5.0); Sodium 137 mmol/L (137-145); Triglycerides 120 mg/dL (<150)
[2024-06-21 15:30] LABS: Basophils Percent Auto 0.6 % (0.2-1.2); Eosinophils Absolute Auto 0.1 K/mm3 (0-0.3); Eosinophils Percent Auto 1.7 % (0-4.4); Hematocrit 51.7 % (42.0-52.0); Hemoglobin 16.9 g/dL (14.0-18.0); Immature Granulocyte Absolute 0.01 K/mm3 (0.00-0.031); Immature Granulocyte Percent A 0.2 % (0-0.5); Immature Platelet Fraction Pct 15.3 % (0.9-11.2); Lymphocytes Absolute Auto 1.05 K/mm3 (0.9-3.2); Lymphocytes Percent Auto 20.3 % (18.3-44.2); Mean Corpuscular HGB Conc 32.7 g/dl (32-36); Mean Corpuscular Hemoglobin 30.6 pg (26-34); Mean Corpuscular Volume 93.7 fl (80-100); Mean Platelet Volume 13.3 fl (7.4-10.4); Monocytes Absolute Auto 0.5 K/mm3 (0.1-0.6); Monocytes Percent Auto 8.9 % (2.6-8.5); Neutrophils Absolute Auto 3.5 K/mm3 (1.3-6.7); Neutrophils Percent Auto 68.3 % (45.5-73.1); Platelet Count Result 182 k/mm3 (150-375); Red Blood Count 5.52 M/mm3 (4.6-6.20); Red Cell Distribution Width 13.3 % (11.5-14.5); White Blood Count 5.2 K/mm3 (4.5-10.0)
[2024-06-21 15:31] LABS: LDL Cholesterol Direct 97 mg/dL
[2024-06-21 15:52] LABS: Prostate Specific Antigen 1.3 ng/mL (< OR = 4.0); Thyroid Stimulating Hormone 0.287 uIU/mL (0.465-4.680)
== END 2024-06-21 14:32 | disposition home or self-care (01) ==
LOC: ANHLAB 14:34
PROVIDERS: PCP Internal Medicine; Visit Provider Internal Medicine
DX: Z00.00 Encounter for general adult medical examination without abnormal findings (principal); D75.1 Secondary polycythemia; R73.03 Prediabetes; Z68.41 Body mass index [BMI] 40.0-44.9, adult
CPT/HCPCS: 36415; 80053; 80061; 83036; 84153; 84443; 85025; 85055

== ENCOUNTER 2024-07-31 15:23 | Outpatient (CLI) | payer OTHER, SELFPAY ==
[2024-08-04 08:07] LABS: Tissue Transglutaminase IgA Ab <1.0 U/mL; Tissue Transglutaminase IgG Ab <1.0 U/mL
== END 2024-07-31 15:24 | disposition home or self-care (01) ==
LOC: ANHLAB 15:25
PROVIDERS: PCP Internal Medicine; Visit Provider Internal Medicine Gastroenterology
DX: K52.9 Noninfective gastroenteritis and colitis, unspecified (principal)
CPT/HCPCS: 36415; 86364

== ENCOUNTER 2024-08-02 16:55 | Outpatient (CLI) | payer OTHER, SELFPAY ==
[2024-08-10 18:54] LABS: Pancreatic Elastase, Stool >500 mcg/g
[2024-08-10 20:24] LABS: Calprotectin, Stool 11 mcg/g
== END 2024-08-02 16:56 | disposition home or self-care (01) ==
PROVIDERS: PCP Internal Medicine; Visit Provider Internal Medicine Gastroenterology
DX: K52.9 Noninfective gastroenteritis and colitis, unspecified (principal)
CPT/HCPCS: 82653; 83993

== ENCOUNTER 2024-08-09 16:38 | Emergency (ER) | payer OTHER, SELFPAY ==
--- NOTE | ~2024-08-09 | XR_ITS ---
XR chest 2V Ordering provider: Eli Montes APRN History: 69 years Male with . fever and cough . Comparison: October 19, 2009 FINDINGS: MEDIASTINUM: The cardiac silhouette is not enlarged. LUNGS: No infiltrates, effusions or pneumothorax. OTHER: No free air under the diaphragm. Degenerative changes of the spine. IMPRESSION: No acute cardiopulmonary pathology. Reviewed, dictated and finalized at location A.
--- NOTE | 2024-08-09 16:52 | ED.URI ---
HPI - URI/Sore Throat General Chief Complaint: Upper Respiratory Infection Stated Complaint: SOB Time Seen by Provider: 08/09/24 17:00 Source: patient, RN notes reviewed and old records reviewed Mode of arrival: ambulatory Limitations: no limitations History of Present Illness HPI Narrative: patient with 2 day history of fever, cough, body aches, headache. Reports that his has COVID, he is concerned about how fatigued he is and how much his cough is hurting him. He reports that he is intermittently short of breath, especially with activity. He has been taking [id number] medications for his symptoms with moderate relief. Last dose of Tylenol was about 4 hours prior to arrival. He reports T-max of 102? Related Data Home Medications Medication Instructions Recorded Confirmed amlodipine 5 mg-benazepril 20 mg 5 cap PO QAM 01/01/20 08/09/24 capsule levothyroxine 175 mcg tablet 175 mcg PO QAM 01/01/20 08/09/24 finasteride 5 mg tablet 5 mg PO HS 07/31/21 08/09/24 tamsulosin 0.4 mg capsule 0.4 mg PO HS 07/31/21 08/09/24 aspirin 81 mg capsule 81 mg PO DAILY 07/26/24 08/09/24 Allergies Allergy/AdvReac Type Severity Reaction Status Date / Time Penicillins Allergy Unknown RASH Verified 08/09/24 16:53 Sulfa (Sulfonamide Allergy Unknown RASH/HIVES Verified 08/09/24 16:53 Antibiotics) Review of Systems Review of Systems: All systems reviewed & are unremarkable except as noted in HPI and below Constitutional: Constitutional: Reports no additional constitutional complaints ENT: Reports system reviewed and no additional complaints, except as documented, Reports as per HPI, Reports nasal congestion and Reports nasal discharge Cardiovascular: Cardiovascular: Reports no additional cardiovascular complaints Respiratory: Respiratory: Reports as per HPI, Reports no additional respiratory complaints, Reports chest congestion, Reports cough, Reports pain with cough and Reports dyspnea Gastrointestinal: Gastrointestinal: Reports no additional gastrointestinal complaints Musculoskeletal: Musculoskeletal: Reports as per HPI and Reports myalgias PMFSH Past Medical History Medical History Arthritis BPH (benign prostatic hyperplasia) Bronchitis Chronic diarrhea Hypertension Hypothyroid Pneumonia Sciatica Secondary erythrocytosis Surgical History Surgical History Hx laparoscopic cholecystectomy 05/19/2022 Hx of colonoscopy removed 4 polyps Family History Family History Mother Diabetes mellitus Father Dementia Skin cancer Sibling Hemochromatosis Social History Social History Social History: Patient lives with his , son and granddaughter. He drinks 2-3 alcoholic drinks per day with 2 shots per drink. No drug use. No history of IV drug use. Patient smoked up to 2-3 packs per day for 40 years (started at age 14yo). He quit 13 years ago. He is a full code. He nominates his to be the individual would make medical decisions for him if he is unable. Smoking packs per day: 2 Smoking cigarettes per day: 40.0 Years smoked: 35 Smoking pack-years: 70.00 Smoking status: Former smoker Tobacco type: cigarettes Second hand tobacco smoke exposure: No Smoking end date: 11/21/07 Alcohol intake: former Drinks per week: 20 Alcohol use details: WAS 20 DRINKS/WEEK, STATES NONE SINCE 04/29/22 & GOING TO STOP DRINKING ALL TOGETHER Substance use: never Substance use type: does not use Living arrangements: with family Gender identity (if verbalized by the patient): Male Spiritual care concerns: No Exam Const: General: cooperative, no acute distress, alert and awake Orientation/consciousness: oriented to person, oriented to place and oriented to time HENMT:
[2024-08-09 16:53] VITALS: BP 171/76; PULSE 94; RESP 18; TEMP 37.8; O2SAT 98
[2024-08-09 17:12] VITALS: TEMP 37.8
[2024-08-09] MEDS: ACETAMINOPHEN 500 MG TABLET 1000 MG PO (17:12)
[2024-08-09 17:21] LABS: EDCOVIDSCREEN Negative (Negative); EDINFLUASCREEN Negative (Negative); EDINFLUBSCREEN Negative (Negative)
[2024-08-09 17:37] VITALS: BP 157/82; PULSE 93; RESP 18; TEMP 37.6
== END 2024-08-09 17:47 | disposition home or self-care (01) ==
PROVIDERS: Emergency Provider Nurse Practitioner Family; PCP Internal Medicine
DX: J06.9 Acute upper respiratory infection, unspecified (principal); Z20.822 Contact with and (suspected) exposure to COVID-19; Z87.891 Personal history of nicotine dependence; M19.90 Unspecified osteoarthritis, unspecified site; N40.0 Benign prostatic hyperplasia without lower urinary tract symptoms; I10 Essential (primary) hypertension; E03.9 Hypothyroidism, unspecified
CPT/HCPCS: 71046; 87426; 87804; 99213; A9270; G0463

== ENCOUNTER 2024-09-14 00:18 | Day surgery (SDC) | payer OTHER, SELFPAY ==
[2024-09-04 13:31] VITALS: BMI 41.5
[2024-09-14 12:33] VITALS: BP 149/91; PULSE 100; RESP 22; TEMP 37; O2SAT 98
[2024-09-14] MEDS: LACTATED RINGERS 1,000 ML 150 ML IV CONT (12:38)
--- NOTE | 2024-09-14 12:38 | WPDANESEPPF ---
Anes - Initial Pre Proc Eval Procedure: Operation Date: 09/14/24 14:00 Proposed Procedures p Colonoscopy - Dru Gupta MD Date/Time: 09/14/24 12:38 Surgeon: Dru Gupta MD Pre Op Diagnosis: Noninfective gastroenteritis/colitis Patient Data Age: 69 Gender: M Height: 1.83 m Weight: 140.6 kg Last Vital Signs Temp 98.6 F 09/14/24 12:33 Pulse 100 09/14/24 12:33 Resp 22 H 09/14/24 12:33 BP 149/91 H 09/14/24 12:33 Pulse Ox 98 09/14/24 12:33 O2 Del Method Room Air 09/14/24 12:33 Allergies Allergy/AdvReac Type Severity Reaction Status Date / Time Penicillins Allergy Unknown RASH Verified 09/14/24 12:31 Sulfa (Sulfonamide Allergy Unknown RASH/HIVES Verified 09/14/24 12:31 Antibiotics) Home Medications Medication Instructions Recorded Confirmed Type amlodipine 5 mg-benazepril 20 mg 1 cap PO QAM 01/01/20 09/14/24 History capsule levothyroxine 175 mcg tablet 175 mcg PO QAM 01/01/20 09/14/24 History finasteride 5 mg tablet 5 mg PO HS 07/31/21 09/14/24 History tamsulosin 0.4 mg capsule 0.4 mg PO HS 07/31/21 09/14/24 History aspirin 81 mg capsule 81 mg PO DAILY 07/26/24 09/14/24 History albuterol sulfate 90 mcg/actuation 2 puff inhalation QID PRN 08/09/24 09/14/24 Rx aerosol inhaler (Ventolin HFA) shortness of breath or wheezing #8.5 grams Patient hx anesthesia problems: none Family hx anesthesia problems: none Results Review: All pre-operative results and documents have been reviewed as part of the pre-operative evaluation. [facility] Past Medical History Medical History Arthritis BPH (benign prostatic hyperplasia) Bronchitis Chronic diarrhea Hypertension Hypothyroid Pneumonia Sciatica Secondary erythrocytosis Surgical History Surgical History Hx laparoscopic cholecystectomy 05/19/2022 Hx of colonoscopy removed 4 polyps Family History Family History Mother Diabetes mellitus Father Dementia Skin cancer Sibling Hemochromatosis Social History Social History Social History: Patient lives with his , son and granddaughter. He drinks 2-3 alcoholic drinks per day with 2 shots per drink. No drug use. No history of IV drug use. Patient smoked up to 2-3 packs per day for 40 years (started at age 14yo). He quit 13 years ago. He is a full code. He nominates his to be the individual would make medical decisions for him if he is unable. Smoking packs per day: 2 Smoking cigarettes per day: 40.0 Years smoked: 35 Smoking pack-years: 70.00 Smoking status: Former smoker Tobacco type: cigarettes Second hand tobacco smoke exposure: No Smoking end date: 11/21/07 Alcohol intake: former Drinks per week: 20 Alcohol use details: WAS 20 DRINKS/WEEK, STATES NONE SINCE 04/29/22 & GOING TO STOP DRINKING ALL TOGETHER Substance use type: does not use Living arrangements: with family Gender identity (if verbalized by the patient): Male Spiritual care concerns: No Anes - Eval Final PreProcedure Day of Procedure 09/14/24 12:38 Patient weight: morbidly obese Heart: regular rate and rhythm Lungs: clear to auscultation Airway: Mallampati scale class II Neurological: alert and oriented Last oral intake: >/= 8 hours ASA classification: III Emergent: no Anesthetic plan: proceed Anesthesia type and monitoring: general GIVS and standard monitoring Results Review: All pre-operative results and documents have been reviewed as part of the pre-operative evaluation. MO, HTN, hypothyroidism, ex smoker, quit approx [id number]. Activity limited by back and orthopedic pain, no cp or sob w walking short distances. Informed Consent: The patient's anesthetic plan and its attendant risks and benefits were discussed with the patient/family/POA. Questions were solicited and answers provided to the satisfaction of the patient/family/POA.
--- NOTE | 2024-09-14 12:54 | PM.HPGS ---
History of Present Illness History of Present Illness Consent: Risks, benefits, and alternatives have been discussed and questions answered. Patient agrees to proceed with procedure. Chief complaint: Noninfective gastroenteritis/colitis Narrative: Pedro Coleman is a 69 year old male with diarrhea only using imodium prn, normal stool calprotectin and elastase, serology for celiac negative. Last colonoscopy 2020 Review of Systems Review of Systems: All systems reviewed & are unremarkable except as noted in HPI and below PMFSH Past Medical History Medical History Arthritis BPH (benign prostatic hyperplasia) Bronchitis Chronic diarrhea Hypertension Hypothyroid Pneumonia Sciatica Secondary erythrocytosis Surgical History Surgical History Hx laparoscopic cholecystectomy 05/19/2022 Hx of colonoscopy removed 4 polyps Family History Family History Mother Diabetes mellitus Father Dementia Skin cancer Sibling Hemochromatosis Social History Social History Social History: Patient lives with his , son and granddaughter. He drinks 2-3 alcoholic drinks per day with 2 shots per drink. No drug use. No history of IV drug use. Patient smoked up to 2-3 packs per day for 40 years (started at age 14yo). He quit 13 years ago. He is a full code. He nominates his to be the individual would make medical decisions for him if he is unable. Smoking packs per day: 2 Smoking cigarettes per day: 40.0 Years smoked: 35 Smoking pack-years: 70.00 Smoking status: Former smoker Tobacco type: cigarettes Second hand tobacco smoke exposure: No Smoking end date: 11/21/07 Alcohol intake: former Drinks per week: 20 Alcohol use details: WAS 20 DRINKS/WEEK, STATES NONE SINCE 04/29/22 & GOING TO STOP DRINKING ALL TOGETHER Substance use type: does not use Living arrangements: with family Gender identity (if verbalized by the patient): Male Spiritual care concerns: No Meds Home Medications and Allergies Home Medications Medication Instructions Recorded Confirmed Type amlodipine 5 mg-benazepril 20 mg 1 cap PO QAM 01/01/20 09/14/24 History capsule levothyroxine 175 mcg tablet 175 mcg PO QAM 01/01/20 09/14/24 History finasteride 5 mg tablet 5 mg PO HS 07/31/21 09/14/24 History tamsulosin 0.4 mg capsule 0.4 mg PO HS 07/31/21 09/14/24 History aspirin 81 mg capsule 81 mg PO DAILY 07/26/24 09/14/24 History albuterol sulfate 90 mcg/actuation 2 puff inhalation QID PRN 08/09/24 09/14/24 Rx aerosol inhaler (Ventolin HFA) shortness of breath or wheezing #8.5 grams Allergies Allergy/AdvReac Type Severity Reaction Status Date / Time Penicillins Allergy Unknown RASH Verified 09/14/24 12:31 Sulfa (Sulfonamide Allergy Unknown RASH/HIVES Verified 09/14/24 12:31 Antibiotics) Vital Signs Vital Signs - 24 hr 09/14/24 12:33 Temperature 98.6 F Pulse Rate 100 Respiratory Rate 22 H Blood Pressure 149/91 H Pulse Oximetry 98 Oxygen Delivery Room Air Exam Const: General: comfortable and no acute distress HENMT: Face/Nose/Sinus: Normal nares present Eyes: General: appearance normal, both eyes and all related structures Neck: Neck: no JVD Resp: Auscultation: clear to auscultation bilaterally Cardio: Rate: regular rate Rhythm: regular rhythm GI: Inspection: non-distended GI Palp: Yes Soft to palpation Skin: General skin exam: normal color Neuro: General: gait normal Speech: normal speech Extrem: General: normal to inspection Psych: Mental Status: mental status grossly normal Assessment and Plan Assessment and plan (1) Chronic diarrhea: Code(s): K52.9 - Noninfective gastroenteritis and colitis, unspecified Status: Acute Assessment and Plan: colonoscopy with random colon bx
[2024-09-14 13:06] VITALS: BP 118/61; PULSE 85; RESP 23; O2SAT 98
[2024-09-14 13:16] VITALS: BP 126/71; PULSE 58; RESP 18; O2SAT 98
[2024-09-14 13:25] VITALS: BP 136/77; PULSE 85; RESP 21; O2SAT 100
== END 2024-09-14 13:59 | disposition home or self-care (01) ==
PROVIDERS: PCP Internal Medicine; Visit Provider Internal Medicine Gastroenterology
PROC: 0DJD8ZZ Inspection of Lower Intestinal Tract, Via Natural or Artificial Opening Endoscopic (ICD-10-PCS; CPT 45378; principal; 2024-09-14 14:00)
DX: K64.8 Other hemorrhoids (principal); K57.30 Diverticulosis of large intestine without perforation or abscess without bleeding; N40.0 Benign prostatic hyperplasia without lower urinary tract symptoms; I10 Essential (primary) hypertension; E03.9 Hypothyroidism, unspecified; D75.1 Secondary polycythemia; E66.01 Morbid (severe) obesity due to excess calories; Z68.41 Body mass index [BMI] 40.0-44.9, adult; Z79.82 Long term (current) use of aspirin; Z79.51 Long term (current) use of inhaled steroids; Z98.890 Other specified postprocedural states; Z90.49 Acquired absence of other specified parts of digestive tract; Z86.0100 Personal history of colon polyps, unspecified; Z87.891 Personal history of nicotine dependence; Z84.0 Family history of diseases of the skin and subcutaneous tissue
CPT/HCPCS: 45380; 88305; J2704; J7120

== ENCOUNTER 2024-10-26 17:19 | Emergency (ER) | payer OTHER, SELFPAY ==
--- NOTE | ~2024-10-26 | XR_ITS ---
XR chest 2V Ordering provider: Eli Montes APRN History: 69 years Male with . Productive cough . Comparison: None. FINDINGS: MEDIASTINUM: The cardiac silhouette is not enlarged. LUNGS: No infiltrates, effusions or pneumothorax. OTHER: No free air under the diaphragm. . Degenerative changes of the spine. IMPRESSION: No acute cardiopulmonary pathology. Reviewed, dictated and finalized at location A. [employer] F[employer]ER
[2024-10-26 17:28] VITALS: BP 178/89; PULSE 77; RESP 18; TEMP 36.9; O2SAT 99
--- NOTE | 2024-10-26 18:15 | ED.URI ---
HPI - URI/Sore Throat General Chief Complaint: Upper Respiratory Infection Stated Complaint: Cough Up Blood Time Seen by Provider: 10/26/24 18:00 History of Present Illness HPI Narrative: Patient presents with complaints of sinus congestion and chest congestion. He reports that he has had copious postnasal drainage, and cough is becoming excessively productive. He does report that sometimes there is blood tinged sputum. He is unsure if this is postnasal drainage or actual sputum. He reports that he is more tired than normal, but does not think he is running a fever. He does report occasional chills. He has been taking [id number]-[id number] medication with poor results. A member of his household was recently diagnosed and treated for atypical pneumonia Related Data Home Medications Medication Instructions Recorded Confirmed amlodipine 5 mg-benazepril 20 mg 1 cap PO QAM 01/01/20 09/27/24 capsule levothyroxine 175 mcg tablet 175 mcg PO QAM 01/01/20 09/27/24 finasteride 5 mg tablet 5 mg PO HS 07/31/21 09/27/24 tamsulosin 0.4 mg capsule 0.4 mg PO HS 07/31/21 09/27/24 aspirin 81 mg capsule 81 mg PO DAILY 07/26/24 09/27/24 Allergies Allergy/AdvReac Type Severity Reaction Status Date / Time Penicillins Allergy Unknown RASH Verified 09/27/24 12:25 Sulfa (Sulfonamide Allergy Unknown RASH/HIVES Verified 09/27/24 12:25 Antibiotics) Review of Systems Review of Systems: All systems reviewed & are unremarkable except as noted in HPI and below Constitutional: Constitutional: Reports no additional constitutional complaints, Reports body ache(s), Reports chills and Reports lethargy ENT: Reports system reviewed and no additional complaints, except as documented, Reports nasal congestion, Reports nasal discharge, Reports post nasal drip and Reports sinus pressure Cardiovascular: Cardiovascular: Reports no additional cardiovascular complaints Respiratory: Respiratory: Reports no additional respiratory complaints, Reports change in phlegm color, Reports chest congestion, Reports cough and Reports excessive phlegm production Gastrointestinal: Gastrointestinal: Reports no additional gastrointestinal complaints PMFSH Past Medical History Medical History Arthritis BPH (benign prostatic hyperplasia) Bronchitis Chronic diarrhea Hypertension Hypothyroid Pneumonia Sciatica Secondary erythrocytosis Surgical History Surgical History Hx laparoscopic cholecystectomy 05/19/2022 Hx of colonoscopy removed 4 polyps Family History Family History Mother Diabetes mellitus Father Dementia Skin cancer Sibling Hemochromatosis Social History Social History Social History: Patient lives with his , son and granddaughter. He drinks 2-3 alcoholic drinks per day with 2 shots per drink. No drug use. No history of IV drug use. Patient smoked up to 2-3 packs per day for 40 years (started at age 14yo). He quit 13 years ago. He is a full code. He nominates his to be the individual would make medical decisions for him if he is unable. Smoking packs per day: 2 Smoking cigarettes per day: 40.0 Years smoked: 35 Smoking pack-years: 70.00 Smoking status: Former smoker Tobacco type: cigarettes Second hand tobacco smoke exposure: No Smoking end date: 12/14/07 Alcohol intake: never Drinks per week: 20 Alcohol use details: WAS 20 DRINKS/WEEK, STATES NONE SINCE 04/29/22 & GOING TO STOP DRINKING ALL TOGETHER Substance use: former Substance use type: former substance user Other substance usage details: smoked marijuana in the 70's Living arrangements: with family Gender identity (if verbalized by the patient): Male Spiritual care concerns: No Exam Const: General: cooperative, no acute distress, alert and awake Orientation/consciousness: oriented to person, oriented to place and oriented to time HENMT: Head: normal to inspection Ears: TM abnormal dull bilateral Mouth: Yes moist mucous membranes Throat: postnasal drainage Resp: Effort & Inspection: normal respiratory effort and able to speak in complete sentences Auscultation: clear to auscultation bilaterally, no crackles, no rales, no rhonchi, no wheezes and diminished lung sounds Cardio: Palpation: normal PMI Rate: regular rate Rhythm: regular rhythm Heart sounds: S1 normal heart sound present and S2 normal heart sound present Neuro: General: oriented to person, oriented to place and oriented to time Cranial nerves: Yes CN's II-XII intact bilaterally Psych: Appearance: grossly normal Thought process: Normal thought process present Insight: Good insight present (Psych) Judgement: Good judgement present (Psych) Course Course Level of Care: Express Care Visit Vital Signs Vital signs: Vital Signs Temperature 98.4 F 10/26/24 17:28 Pulse Rate 77 10/26/24 17:28 Respiratory Rate 18 10/26/24 17:28 Blood Pressure 178/89 H 10/26/24 17:28 Pulse Oximetry 99 10/26/24 17:28 Oxygen Delivery Room Air 10/26/24 17:28 Temperature 98.4 F 10/26/24 17:28 Pulse Rate 77 10/26/24 17:28 Respiratory Rate 18 10/26/24 17:28 Blood Pressure 178/89 H 10/26/24 17:28 Pulse Oximetry 99 10/26/24 17:28 Oxygen Delivery Room Air 10/26/24 17:28 MDM - URI/Sore Throat MDM Narrative Medical decision making narrative: Patient with household member with atypical pneumonia, patient with similar symptoms. Negative chest x-ray. Will cover with doxycycline given that he is also having some sinus pain and congestion. He is nontoxic appearing, stable for discharge home on p.o. antibiotic therapy. Discharge instructions reviewed with patient, as well as provided in writing per nursing staff. The instructions also include specific and strict return/GO TO THE ER as well as f/u information. All questions have been answered, and the patient deny any further questions with discharge and discharge plan. Some parts of this dictation were generated by voice recognition software and may contain typographical and/or grammatical inaccuracies. Differential Diagnosis Differential diagnosis: Likely upper respiratory infection, viral infection and pharyngitis Medical Records Attestation: I reviewed the patient's medical records. Imaging Data Attestation: I personally reviewed and interpreted this imaging study as follows: My impression: No acute process noted Radiologist's impression: [facility] [address] [place] [address] XRay Report Signed Patient: Pedro Coleman : 1955 MR#: [id number] Age: 69 Acct:[id number] Loc: [facility] ADM Date: 10/26/24Attending Dr: Ordering Physician: Eli Montes FNP Date of Service: 12/06/24 Procedure(s): XR chest 2V Accession Number(s): [id number] cc: Eli Montes FNP; Caterina, Norm Quiñonez MD~ XR chest 2V Ordering provider: Eli Montes APRN History: 69 years Male with . Productive cough . Comparison: None. FINDINGS: MEDIASTINUM: The cardiac silhouette is not enlarged. LUNGS: No infiltrates, effusions or pneumothorax. OTHER: No free air under the diaphragm. . Degenerative changes of the spine. IMPRESSION: No acute cardiopulmonary pathology. Reviewed, dictated and finalized at location A. [employer] SU[employer] REPRESENTATIVE Dictated By: Timoteo Adorno MD 10/26/24 1805 Signed By: <Electronically signed by Timoteo Adorno MD in OV> Discharge Plan Discharge Clinical Impression: Atypical pneumonia Patient Disposition: Home, Self-Care Condition: Stable Instructions: Antibiotic Form, Community Acquired Pneumonia (ED) Additional Instructions: Take medications as prescribed. Follow-up with primary care provider. Emergency department for any new or worsening symptoms. Blood pressure is elevated today, please discuss this with your primary care provider as soon as possible Patient Language: Guyanese Prescriptions: New doxycycline hyclate 100 mg tablet 100 mg PO DAILY Qty: 20 0RF albuterol sulfate [Ventolin HFA] 90 mcg/actuation HFA aerosol inhaler 2 puff inhalation QID PRN (Reason: shortness of breath or wheezing) Qty: 8.5 0RF No Action tamsulosin 0.4 mg Capsule 0.4 mg PO HS finasteride 5 mg Tablet 5 mg PO HS aspirin 81 mg Capsule 81 mg PO DAILY levothyroxine 175 mcg tablet 175 mcg PO QAM amlodipine-benazepril 5-20 mg capsule 1 cap PO QAM Follow-up/Referrals: Caterina,Norm Pires MD [Primary Care Provider] - 1 Week Time of Disposition: 18:27
== END 2024-10-26 18:37 | disposition home or self-care (01) ==
PROVIDERS: Emergency Provider Nurse Practitioner Family; PCP Internal Medicine
DX: J18.9 Pneumonia, unspecified organism (principal); Z87.891 Personal history of nicotine dependence; N40.0 Benign prostatic hyperplasia without lower urinary tract symptoms; I10 Essential (primary) hypertension; E03.9 Hypothyroidism, unspecified; D75.1 Secondary polycythemia; M19.90 Unspecified osteoarthritis, unspecified site; Z79.82 Long term (current) use of aspirin
CPT/HCPCS: 71046; 99213; G0463

== ENCOUNTER 2024-11-27 15:18 | Outpatient (CLI) | payer OTHER, SELFPAY ==
[2024-11-27 15:46] LABS: Basophils Absolute Auto 0.1 K/mm3 (0.0-0.1); Basophils Percent Auto 0.9 % (0.2-1.2); Eosinophils Absolute Auto 0.2 K/mm3 (0-0.3); Eosinophils Percent Auto 2.9 % (0-4.4); Hematocrit 48.8 % (42.0-52.0); Hemoglobin 15.6 g/dL (14.0-18.0); Immature Granulocyte Absolute 0.02 K/mm3 (0.00-0.031); Immature Granulocyte Percent A 0.3 % (0-0.5); Lymphocytes Absolute Auto 1.65 K/mm3 (0.9-3.2); Lymphocytes Percent Auto 25.3 % (18.3-44.2); Mean Corpuscular Hemoglobin 29.8 pg (26-34); Mean Corpuscular Volume 93.3 fl (80-100); Mean Platelet Volume 12.4 fl (7.4-10.4); Monocytes Absolute Auto 0.6 K/mm3 (0.1-0.6); Monocytes Percent Auto 9.5 % (2.6-8.5); Neutrophils Percent Auto 61.1 % (45.5-73.1); Platelet Count Result 178 k/mm3 (150-375); Red Blood Count 5.23 M/mm3 (4.6-6.20); Red Cell Distribution Width 13.3 % (11.5-14.5); White Blood Count 6.5 K/mm3 (4.5-10.0)
[2024-11-27 16:01] LABS: Anion Gap 4 mmol/L (4-12); Blood Urea Nitrogen 14 mg/dL (9-20); Carbon Dioxide 28 mmol/L (22-30); Chloride 104 mmol/L (98-107); Estimated Glomerular Filt Rate > 60; Glucose 115 mg/dL (65-110); Potassium 4.8 mmol/L (3.4-5.0); Sodium 136 mmol/L (137-145)
[2024-11-27 16:13] LABS: Iron 68 ug/dL (49-181)
[2024-11-27 16:22] LABS: Percent Iron Saturation 20 % (20-50)
== END 2024-11-27 15:19 | disposition home or self-care (01) ==
LOC: ANHLAB 15:25
PROVIDERS: PCP Internal Medicine; Visit Provider Internal Medicine Hematology & Oncology
DX: D75.1 Secondary polycythemia (principal)
CPT/HCPCS: 36415; 80048; 82728; 83540; 83550; 85025

== ENCOUNTER 2024-12-05 00:31 | Day surgery (SDC) | payer OTHER, SELFPAY ==
[2024-09-27 12:42] VITALS: BMI 41.8
[2024-10-22 16:15] VITALS: BMI 41.8
[2024-11-16 11:58] VITALS: BMI 41.8
--- NOTE | 2024-11-16 12:00 | SUR.PREOP ---
Spoke with patient and confirmed rescheduled date and time for EGD. Went through and updated meds and health hx.
[2024-12-05 13:02] VITALS: BP 178/87; PULSE 93; RESP 20; TEMP 36.3; O2SAT 95
[2024-12-05] MEDS: LACTATED RINGERS 1,000 ML 150 ML IV CONT (13:15)
--- NOTE | 2024-12-05 13:30 | WPDANESEPPF ---
Anes - Initial Pre Proc Eval Procedure: Operation Date: 12/05/24 14:00 Proposed Procedures p Esophagogastroduodenoscopy - Claudio Thomas MD Date/Time: 12/05/24 13:30 Surgeon: Claudio Thomas MD Pre Op Diagnosis: Epigastric pain Patient Data Age: 69 Gender: M Height: 1.83 m Weight: 148.2 kg Last Vital Signs Temp 97.3 F L 12/05/24 13:02 Pulse 93 12/05/24 13:02 Resp 20 12/05/24 13:02 BP 178/87 H 12/05/24 13:02 Pulse Ox 95 12/05/24 13:02 O2 Del Method Room Air 12/05/24 13:02 Allergies Allergy/AdvReac Type Severity Reaction Status Date / Time Penicillins Allergy Unknown RASH Verified 12/05/24 13:01 Sulfa (Sulfonamide Allergy Unknown RASH/HIVES Verified 12/05/24 13:01 Antibiotics) Home Medications ?Medication ?Instructions ?Recorded ?Confirmed ?Type amlodipine 5 mg-benazepril 20 mg 1 cap PO QAM 01/01/20 12/05/24 History capsule levothyroxine 175 mcg tablet 175 mcg PO QAM 01/01/20 12/05/24 History finasteride 5 mg tablet 5 mg PO HS 07/31/21 12/05/24 History tamsulosin 0.4 mg capsule 0.4 mg PO HS 07/31/21 12/05/24 History aspirin 81 mg capsule 81 mg PO DAILY 07/26/24 12/05/24 History albuterol sulfate 90 mcg/actuation 2 puff inhalation QID PRN 10/26/24 11/16/24 Rx aerosol inhaler (Ventolin HFA) shortness of breath or wheezing #8.5 grams Patient hx anesthesia problems: none Family hx anesthesia problems: none Results Review: All pre-operative results and documents have been reviewed as part of the pre-operative evaluation. [facility] Past Medical History Medical History Arthritis BPH (benign prostatic hyperplasia) Bronchitis Chronic diarrhea Hypertension Hypothyroid Pneumonia Sciatica Secondary erythrocytosis Surgical History Surgical History Hx laparoscopic cholecystectomy 05/19/2022 Hx of colonoscopy removed 4 polyps Family History Family History Mother Diabetes mellitus Father Dementia Skin cancer Sibling Hemochromatosis Social History Social History Social History: Patient lives with his , son and granddaughter. He drinks 2-3 alcoholic drinks per day with 2 shots per drink. No drug use. No history of IV drug use. Patient smoked up to 2-3 packs per day for 40 years (started at age 14yo). He quit 13 years ago. He is a full code. He nominates his to be the individual would make medical decisions for him if he is unable. Smoking packs per day: 2 Smoking cigarettes per day: 40.0 Years smoked: 35 Smoking pack-years: 70.00 Smoking status: Former smoker Tobacco type: cigarettes Second hand tobacco smoke exposure: No Smoking end date: 12/14/07 Alcohol intake: never Drinks per week: 20 Alcohol use details: WAS 20 DRINKS/WEEK, STATES NONE SINCE 04/29/22 & GOING TO STOP DRINKING ALL TOGETHER Substance use: former Substance use type: former substance user Other substance usage details: smoked marijuana in the 70's Living arrangements: with family Gender identity (if verbalized by the patient): Male Spiritual care concerns: No Anes - Eval Final PreProcedure Day of Procedure 12/05/24 13:30 Patient weight: morbidly obese Heart: regular rate and rhythm Lungs: clear to auscultation Airway: Mallampati scale class II Neurological: alert and oriented Last oral intake: >/= 8 hours ASA classification: III Emergent: no Anesthetic plan: proceed Anesthesia type and monitoring: general GIVS and standard monitoring Results Review: All pre-operative results and documents have been reviewed as part of the pre-operative evaluation. Informed Consent: The patient's anesthetic plan and its attendant risks and benefits were discussed with the patient/family/POA. Questions were solicited and answers provided to the satisfaction of the patient/family/POA.
--- NOTE | 2024-12-05 14:12 | PM.IMHP ---
H&P: HPI History of Present Illness Date/Time: 12/05/24 14:12 Chief Complaint: Chronic diarrhea -abdominal discomfort Narrative: this patient has extensively been evaluated for chronic diarrhea, which started even before he had a cholecystectomy, years ago. He has undergone stool and blood testing, as well as colonoscopy with biopsies, ruling out microscopic colitis. The patient complains of nonspecific epigastric discomfort concomitant with his diarrhea. He is here for EGD. Review of Systems Review of Systems: All systems reviewed & are unremarkable except as noted in HPI and below PMFSH Past Medical History Medical History (Updated 12/05/24 @ 14:13 by Claudio Thomas MD) Abdominal pain Chronic diarrhea BPH (benign prostatic hyperplasia) Secondary erythrocytosis Hypothyroid Arthritis Sciatica Pneumonia Bronchitis Hypertension Surgical History Surgical History Hx laparoscopic cholecystectomy 05/19/2022 Hx of colonoscopy removed 4 polyps Family History Family History Mother Diabetes mellitus Father Dementia Skin cancer Sibling Hemochromatosis Social History Social History Social History: Patient lives with his , son and granddaughter. He drinks 2-3 alcoholic drinks per day with 2 shots per drink. No drug use. No history of IV drug use. Patient smoked up to 2-3 packs per day for 40 years (started at age 14yo). He quit 13 years ago. He is a full code. He nominates his to be the individual would make medical decisions for him if he is unable. Smoking packs per day: 2 Smoking cigarettes per day: 40.0 Years smoked: 35 Smoking pack-years: 70.00 Smoking status: Former smoker Tobacco type: cigarettes Second hand tobacco smoke exposure: No Smoking end date: 12/14/07 Alcohol intake: never Drinks per week: 20 Alcohol use details: WAS 20 DRINKS/WEEK, STATES NONE SINCE 04/29/22 & GOING TO STOP DRINKING ALL TOGETHER Substance use: former Substance use type: former substance user Other substance usage details: smoked marijuana in the 70's Living arrangements: with family Gender identity (if verbalized by the patient): Male Spiritual care concerns: No Meds Home Medications and Allergies Home Medications ?Medication ?Instructions ?Recorded ?Confirmed ?Type amlodipine 5 mg-benazepril 20 mg 1 cap PO QAM 01/01/20 12/05/24 History capsule levothyroxine 175 mcg tablet 175 mcg PO QAM 01/01/20 12/05/24 History finasteride 5 mg tablet 5 mg PO HS 07/31/21 12/05/24 History tamsulosin 0.4 mg capsule 0.4 mg PO HS 07/31/21 12/05/24 History aspirin 81 mg capsule 81 mg PO DAILY 07/26/24 12/05/24 History albuterol sulfate 90 mcg/actuation 2 puff inhalation QID PRN 10/26/24 11/16/24 Rx aerosol inhaler (Ventolin HFA) shortness of breath or wheezing #8.5 grams Allergies Allergy/AdvReac Type Severity Reaction Status Date / Time Penicillins Allergy Unknown RASH Verified 12/05/24 13:01 Sulfa (Sulfonamide Allergy Unknown RASH/HIVES Verified 12/05/24 13:01 Antibiotics) Vital Signs Vital Signs - 24 hr 12/05/24 13:02 Temperature 97.3 F L Pulse Rate 93 Respiratory Rate 20 Blood Pressure 178/87 H Pulse Oximetry 95 Oxygen Delivery Room Air Exam Const: General: cooperative and healthy appearing Resp: Effort & Inspection: normal respiratory effort and able to speak in complete sentences Auscultation: clear to auscultation bilaterally Cardio: Rate: regular rate Rhythm: regular rhythm GI: Inspection: normal to inspection GI Palp: No No hepatosplenomegaly present Auscultation: normal bowel sounds Rectal Exam: deferred Skin: General skin exam: normal color Psych: Appearance: grossly normal Mental Status: mental status grossly normal Assessment and Plan Assessment and plan (1) Abdominal pain: Qualifiers: Abdominal location: epigastric Qualified Code(s): R10.13 - Epigastric pain Code(s): R10.9 - Unspecified abdominal pain Status: Acute Assessment and Plan: The patient is deemed a good candidate for the procedure. Consent signed. Will proceed.
[2024-12-05 14:35] VITALS: BP 137/77; PULSE 79; RESP 20; O2SAT 98
[2024-12-05 14:45] VITALS: BP 152/94; PULSE 72; RESP 16; O2SAT 100
[2024-12-05 14:55] VITALS: BP 156/86; PULSE 73; RESP 16; O2SAT 100
== END 2024-12-05 15:04 | disposition home or self-care (01) ==
PROVIDERS: PCP Internal Medicine; Referring Provider Internal Medicine Gastroenterology; Visit Provider Internal Medicine Gastroenterology
PROC: 0DJ08ZZ Inspection of Upper Intestinal Tract, Via Natural or Artificial Opening Endoscopic (ICD-10-PCS; CPT 43239; principal; 2024-12-05 14:00)
DX: K29.50 Unspecified chronic gastritis without bleeding (principal); D13.1 Benign neoplasm of stomach; K21.9 Gastro-esophageal reflux disease without esophagitis; K52.9 Noninfective gastroenteritis and colitis, unspecified; E03.9 Hypothyroidism, unspecified; I10 Essential (primary) hypertension; N40.0 Benign prostatic hyperplasia without lower urinary tract symptoms; D75.1 Secondary polycythemia; M19.90 Unspecified osteoarthritis, unspecified site; E66.01 Morbid (severe) obesity due to excess calories; Z68.41 Body mass index [BMI] 40.0-44.9, adult; Z79.82 Long term (current) use of aspirin; Z79.51 Long term (current) use of inhaled steroids; Z98.890 Other specified postprocedural states; Z90.49 Acquired absence of other specified parts of digestive tract; Z86.0100 Personal history of colon polyps, unspecified; Z87.891 Personal history of nicotine dependence; Z84.0 Family history of diseases of the skin and subcutaneous tissue
CPT/HCPCS: 43239; 88305; J2003; J2704; J7120

== ENCOUNTER 2025-06-27 15:45 | Outpatient (CLI) | payer OTHER, SELFPAY ==
--- OUTSIDE RECORDS SUMMARY | 2025-06-27 15:51 | XMS_ITS | Encounter Summary ---
Author Organization [facility] Address [address] [place] [address] Care Team Providers Care Outside Event Sales Specialist Name Role Phone Unavailable Primary Care Provider Unavailabl e Encounter Details Date Type Department Care Team (Late st Contact Info) Description 09/22/2018 Ophth Exam [facility] [address] [place] [address] Maik Rhoades MD [address] [facility] 2L DEPT OF OPHTHALMOLOGY [place], [place] Social History Tobacco Use Types Packs/Day Years Used Date Smoking Tobacco: Never Smokeless Tobacco: Never Alcohol Use Standard Drinks/Week Comments Yes 0 (1 standard drink = 0.6 oz pure alcohol) drinks every day, denies shakes/withdrawls when doesnt drink Sex and Gender Information Value Date Recorded Sex Assigned at Male 12/07/2024 4:25 PM FLOOR TRADER Legal Sex Male 11:06 PM CDT Gender Identity Male 12/07/2024 4:25 PM FLOOR TRADER Sexual Orientation Straight 12/07/2024 4: 25 PM FLOOR TRADER documented as of this encounter Plan of Treatment Not on file documented as of this encounter Visit Diagnoses Not on filedocumented in this encounter
--- OUTSIDE RECORDS SUMMARY | 2025-06-27 15:51 | XMS_ITS | Clinical Summary ---
Author Organization [facility] Address [address] [place] [address] Care Team Providers Care Repairer Typewriter Name Role Phone Norm Diggs MD Primary Care Provider Allergies Active Allergy Reactions Criticality Noted Date Comments Penicillins Sulfa (Sulfonamide Antibiotics) Medications levothyroxine (SYNTHROID) 175 mcg tablet Take 1 tablet (175 mcg total) by mouth daily 90 tablet 3 5 Active tamsulosin (FLOMAX) 0.4 mg extended release capsule TAKE 1 CAPSULE(0.4 MG) BY MOUTH DAILY 90 capsule 3 5 Active finasteride (PROSCAR) 5 mg tablet TAKE 1 TABLET BY MOUTH EVERY DAY TO SHRINK PROSTATE 100 tablet 1 5 Active amLODIPine-palmira zepriL (LOTREL 5-20) 5-20 mg per capsule TAKE 1 CAPSULE BY MOUTH EVERY MORNING 100 capsule 1 5 Active semaglutide (WEGOVY) 2.4 mg/0.75 mL auto-injector Inject 2.4 mg under the skin every 7 days Note this is the highest dose 3 mL 11 5 Active semaglutide (WEGOVY) 2.4 mg/0.75 mL auto-injector Inject 2.4 mg under the skin every 7 days Note this is the highest dose 3 mL 11 5 06/04/20 25 Discontinu ed(Reorder ) Active Problems Problem Noted Date Diagnosed Date Irregular heart beat 05/21/2022 Assessment & Plan (05/21/2022 3:07 PM CDT): Noted irr heart beat on bp monitor several times and then gone on wend night and then thru same and none since and gone . Feels nothing and ekg rate 88 nsr axis 26 no actue changs and no irr heart beat. iven gone will just wait and if finds on and off would order a monitor to check on what if Being detected Polycythemia 06/11/2021 Lumbar disc disease 06/11/2021 Benign hypertension 04/06/2014 Overview (02/25/2017): BENIGN HYPERTENSION Assessment & Plan (05/21/2022 3:07 PM CDT): bp relateivelygood and has gotten contorll and watch ads Wt drp bp will also Hypertension, Medical treament revolves around weight control, salt management, and meds when necessary. long as weight loss is necessary and you are able to drop weight we can cont to monitor the blood pressure and not add meds. Once the weight is not changing then it becomes nesessary to add meds to be able to reach the goal bp. Hypothyroidism 04/06/2014 Overview (02/26/2017): HYPOTHYROIDISM NOS Atopic rhinitis 04/06/2014 Overview (02/26/2017): ALLERGIC RHINITIS NOS Tear of medial meniscus of knee 10/23/2010 Overview (02/25/2017): Medial meniscus tear Resolved Problems Problem Noted Date Diagnosed Date Resolved Date Hereditary hemochromatosis 06/11/2021 0 06/23/2023 Morbid obesity with BMI of 40.0-44.9, adult 05/18/2017 03/07/2025 Assessment & Plan (05/21/2022 3:09 PM CDT): Morbid obesity is a bmi of 40 or more. Targeted weight loss with portion controll(calorie restriction) ,increased basal activity Levels along with adding an exercise program to lead to gradual weight loss,.Any program of change from weight watchers. To nutra system along with others work. Epistaxis 04/06/2014 02/24/2018 Overview (02/25/2017): EPISTAXIS Morbid obesity 12/11/2013 02/24/2018 Overview (02/25/2017): Morbid obesity Encounters Date Type Department Care Team Description 06/04/2025 Orders Only [facility] Primary Care at [address] [address] Norm Diggs MD 06/04/2025 Telephone [facility] Medical [facility] Primary Care at [address] [address] Norm Diggs MD Medication Request; Prior Auth (Kris) 05/06/2025 Orders Only [facility] Primary Care at [address] [address] Norm Diggs MD 05/06/2025 Telephone [facility] Primary Care at [address] [address] Norm Diggs MD Med Refill 04/08/2025 Orders Only [facility] Primary Care at [address] [address] Norm Diggs MD 04/08/2025 Telephone [facility] Medical [facility] Primary Care at [address] [address] Norm Diggs MD Medication Request from Last 3 Months Immunizations Immunization Administration Dates Next Due Influenza, Quadrivalent, Hig h Dose, Preservative Free, Intrr 10/01/2022 Influenza, Quadrivalent, Spl it, Preservative Free, Intradermal 11/22/2016,12/18/2015 Influenza, Quadrivalent, Spl it, Preservative Free, Intramuscular 08/28/2018 Influenza, Trivalent, High D ose, Split, Preservative Free, Intramuscular 12/18/2019 Influenza, Trivalent, IM (MDV) 11/23/2013 Influenza, Trivalent, Preser vative Free, Intramuscular 12/01/2016 Influenza, Unspecified 03/07/2025(Deferr ed: Patient Refused),09/12/2023(Deferred: Patient Refused),01/19/2022(Deferred: Patient Refused),06/11/2021(Deferred: Patient Refused) Pfizer SARS-CoV-2 Monovalent Vaccination (12+ Yrs) PURPLE 09/10/2021,02/11/2021,01/14/2021 Pneumococcal Conjugate PCV 13 08/28/2018 Tdap 11/04/2021,08/03/2013,04/27/2010 Medical History Medical History Date Comments Hx Other Medical urgent care [facility]; Comments: LNP 12/12/2014 - Family History Medical History Relation Name Comments Hemochromatosis Brother 2 Hemochromato sis; Coronary artery disease Father Adilia nary artery disease; Prostate cancer Father Cancer, pros diez; Skin cancer Father Cancer -skin; Diabetes Mother Diabetes mellit ; Relation Name Status Comments Brother 1 Alive Brother 2 Father Mother Social History Tobacco Use Types Packs/Day Years Used Date Smoking Tobacco: Former Smokeless Tobacco: Never Tobacco Cessation:Counseling Given: Not Answered Comments:Smoking History Packs/day: 2 Packs Alcohol Use Standard Drinks/Week Comments Yes 0 (1 standard drink = 0.6 oz pur e alcohol) AUDIT-C Answer Date Recorded Q1: How often do you have a drink containing alcohol? Never 06/28/2024 Q2: How many drinks containi ng alcohol do you have on a typical day when you are drinking? Patient does not drink Q3: How often do you have si x or more drinks on one occasion? Never 06/28/2024 PHQ-2 Answer Date Recorded PHQ-2 Total Score (If total score is 3 or more points, staff should administer the PHQ-9) 0 03/07/2025 Sex and Gender Information Value Date Recorded Sex Assigned at Not on file Legal Sex Male 4:37 AM DISPATCHER CHIEF OIL Gender Identity Not on file Sexual Orientation Not on file Obstetrics History Last Filed Vital Signs Vital Sign Reading Time Taken Comments Blood Pressure 142/80 03/07/2025 3:08 PM CDT Pulse 74 03/07/2025 3:08 PM CDT Temperature 36.3 C (97.3 F) 03/07/2025 3:08 PM CDT Respiratory Rate 16 03/07/2025 3:08 PM CDT Oxygen Saturation 100% 03/07/2025 3:08 PM CDT Inhaled Oxygen Concentration - - Weight 146.1 kg (322 lb) 03/07/2025 3:08 PM CDT Height 177.8 cm (5' 10) 03/07/2025 3:08 PM CDT Body Mass Index 46.2 03/07/2025 3:08 PM CDT Plan of Treatment Health Maintenance Due Date Last Done Comments Hepatitis C Screening 1955 Hepatitis B Screening 02/02/1972 Zoster Vaccine (1 of 2) 02/02/2004 Pneumococcal vaccine 65+ (2 of 2 - PPSV23) 08/28/2019 08/28/2018 Prostate Cancer Screening-PSA 06/07/2023, 06/03/2021, 03/01/2019 Covid-19 Vaccine (4 - 2023-2 5 season) 2024 09/10/2021, 02/11/2021, 01/14/2021 Well Visit 65+ 06/28/2025 06/28/2024, 08/0 01/2023, 06/17/2022, Additional history exists Influenza Vaccine (#1) 2025 , 12/18/2019, 08/28/2018, Additional history exists Depression Screening 03/07/2026 03/07/2025, 06/23/2023, 06/17/2022, Additional history exists Fall Risk Assessment 03/07/2026 03/07/2025, 06/23/2023, 06/17/2022, Additional history exists Colon Cancer Screening-Colonoscopy 09/14/2029 09/14/2024, 12/13/2007, 12/11/2007 DTaP/Tdap/Td Vaccine (4 - Td or Tdap) 11/04/2031 11/04/2021, 08/03/2013, 04/27/2010 Abdominal Aortic Aneurysm (A AA) Screen Completed 12/12/2019, 12/12/2019 Colon Cancer Screening-CT Colonography Discontinued 09/14/2024, 12/13/2007, 12/11/2007 Colon Cancer Screening-DNA Stool Discontinued 09/14/2024, 12/13/2007, 12/11/2007 Colon Cancer Screening-FIT Discontinued 09/14, 12/13/2007, 12/11/2007 Colon Cancer Screening-Sigmoidoscopy Discontinued 09/14/2024, 12/13/2007, 12/11/2007 Procedures Procedure Name Priority Date/Time Associated Diagnosis Comments COLONOSCOPY Routine 09/14/2024 PSA SCREEN Routine 06/07/[address] CHEST ABDOMEN PELVIS W CONTRAST Schedule Routine, Read Routine (OP Routine) 12/12/2019 from Last 3 Months or Most Recently Relevant to Health Maintenance Results * Colonoscopy (09/14/2024) Anatomical Region Laterality Modality Other Generic External Data Provider ENDOSCOPY PROCEDU RES Final Result * PSA screen (06/07/2022) SCRIBED PSA, Serum 1.1 < - 4.0 EXTERNAL LAB Blood specimen (specimen) 06/07/2022 Norm Diggs MD LAB BLOOD ORDERABLES nal Result EXTERNAL LAB * CT Chest Abdomen Pelvis W Contrast (12/12/2019) Anatomical Region Laterality Modality Body N/A Computed Tomogra phy Historical Provider MD KINNEY CT PROCEDURES Final R esult from Last 3 Months or Most Recently Relevant to Health Maintenance Insurance [facility] Care Teams Repairer Typewriter Relationship Specialty Start Date End Date Norm Diggs MD PCP - General 02/18/17
--- OUTSIDE RECORDS SUMMARY | 2025-06-27 15:51 | XMS_ITS | Encounter Summary ---
Author Organization [facility] Address [address] [place] [address] Care Team Providers Care Rail Equipment Operator Name Role Phone Norm Diggs MD Primary Care Provider Norm Diggs MD Primary Care Provider Norm Diggs MD Primary Care Provider Encounter Details Date Type Department Care Team (Late st Contact Info) Description 12/11/2007 Orders Only [facility] [address] [place] [address] Norm Diggs MD [address] [place] [address] [address] [place] [address] Social History Tobacco Use Types Packs/Day Years Used Date Smoking Tobacco: Never Assessed Sex and Gender Information Value Date Recorded Sex Assigned at Not on file Legal Sex Male 4:37 AM MANAGER BUDGET Gender Identity Not on file Sexual Orientation Not on file documented as of this encounter Plan of Treatment Not on file documented as of this encounter Procedures Procedure Name Priority Date/Time Associated Diagnosis Comments COLONOSCOPY Routine 12/11/2007 documented in this encounter Results * Colonoscopy (12/11/2007) Anatomical Region Laterality Modality Other us Historical Provider ENDOSCOPY PROCEDURES Eunice l Result documented in this encounter Visit Diagnoses Not on filedocumented in this encounter Additional Health Concerns Infection Onset Date Last Indicated Resolved Time COVID: Suspected 10/21/2020 10/21/2020 10/22/2020 11:07 PM MANAGER BUDGET COVID19 10/21/2020 10/21/2020 11/04/2020 3:08 AM MANAGER BUDGET documented as of this encounter Care Teams Rail Equipment Operator Relationship Specialty Start Date End Date Norm Diggs MD PCP - General 02/18/17 Norm Diggs MD PCP - General 02/22/13 02/17/17 Norm Diggs MD PCP - General 12/08/07 02/21/13 documented as of this encounter
--- OUTSIDE RECORDS SUMMARY | 2025-06-27 15:51 | XMS_ITS | Clinical Summary ---
Author Organization [facility] Address [address] [place] [address] Care Team Providers Care Retail Cashier Associate Name Role Phone Unavailable Primary Care Provider Unavailabl e Source Comments [facility],non-owned Affiliates and Associated Physician Practices is amultiple site organization consisting of ambulatory clinics and hospital sitesin [place], [place], [place] and [place]. This disclosure is being madepursuant to the Care Everywhere program and may not contain all information available regarding this patient. Last updated 18.[facility] Allergies Active Allergy Reactions Criticality Noted Date Comments Penicillins Rash Medium 07/15/2021 Sulfa Drugs Rash Medium 07/15/2021 Medications * Be aware that medications may not be up to date on this document. Alwaysverify current medications with the patient. amLODIPine-palmira zepril (Lotrel) 5-20 MG capsule Take 1 (one) capsule by mouth every morning Active aspirin EC (Ecotrin) 81 MG tablet Take 1 (one) tablet by mouth once daily Active finasteride (Proscar) 5 MG tablet Take 1 (one) tablet by mouth once daily Active levothyroxine (Synthroid) 175 MCG tablet Take 1 (one) tablet by mouth once daily 01/30/2024 Active tamsulosin (Flomax) 0.4 MG capsule Take 1 (one) capsule by mouth once daily 09/15/2023 Active Social History Tobacco Use Types Packs/Day Years Used Date Smoking Tobacco: Former Cigarettes 1 39 1 969 - 2007 Smokeless Tobacco: Never Tobacco Cessation:Counseling Given: Not Answered Alcohol Use Standard Drinks/Week Comments Not Currently 0 (1 standard drink = 0.6 oz pur e alcohol) hasn't drank since 2021 Sex and Gender Information Value Date Recorded Sex Assigned at Male 12/07/2024 4:25 PM FACILITIES CUSTODIAN Legal Sex Male 11:06 PM CDT Gender Identity Male 12/07/2024 4:25 PM FACILITIES CUSTODIAN Sexual Orientation Straight 12/07/2024 4: 25 PM FACILITIES CUSTODIAN Last Filed Vital Signs Vital Sign Reading Time Taken Comments Blood Pressure 170/83 12/19/2024 1:45 PM FACILITIES CUSTODIAN Pulse 75 12/19/2024 1:45 PM FACILITIES CUSTODIAN Temperature 37.2 C (99 F) 12/19/2024 11:51 AM FACILITIES CUSTODIAN Respiratory Rate 20 12/19/2024 1:45 PM FACILITIES CUSTODIAN Oxygen Saturation 96% 12/19/2024 1:45 PM FACILITIES CUSTODIAN Inhaled Oxygen Concentration - - Weight 148.8 kg (328 lb) 12/19/2024 11:49 AM FACILITIES CUSTODIAN Height 182.9 cm (6') 12/19/2024 11:49 AM FACILITIES CUSTODIAN Body Mass Index 44.48 12/19/2024 11:49 AM FACILITIES CUSTODIAN Plan of Treatment Health Maintenance Due Date Last Done Comments COLOGUARD (AGES 45-75) - COLON CA SCREENING 1954 CT COLONOGRAPHY - COLON CA SCREENING 1955 FIT - COLON CA SCREENING 1955 FLEX SIG - COLON CA SCREENING 1955 LIPID TESTING 1955 HEPATITIS C SCREENING 01/28/1972 DTAP/TDAP/TD VACCINES (1 - Tdap) 1973 PNEUMOCOCCAL VACCINE 50+ (1 of 1 - PCV) 02/02/2004 ZOSTER VACCINE (1 of 2) 02/02/2004 Respiratory Syncytial Virus (RSV) Vaccine Pt: or over 60 yrs (1 - Risk 60-74 years 1-dose series) 2014 AAA SCREENING 2019 COVID-19 VACCINE ( - 2023- season) 2024 09/10/2021, 02/11/2021, 01/14/2021 DEPRESSION SCREENING 11/21/2024 INFLUENZA VACCINE (#1) 2025 , 08/28/2018, 12/01/2016, Additional history exists COLON MONITORING 09/14/2034 09/14/2024 COLONOSCOPY - COLON CA SCREENING 09/14/2034 09/14/2024 Colorectal Cancer Screening 09/14/2034 HEPATITIS B VACCINE Aged Out No longe r eligible based on patient's age to complete this topic HIB VACCINE Aged Out No longer eligi ble based on patient's age to complete this topic HPV VACCINE Aged Out No longer eligi ble based on patient's age to complete this topic MENINGOCOCCAL (Group B) VACCINE SHARED DECISION-MAKING Aged Out No longer eligible based on patient's age to complete this topic MENINGOCOCCAL GROUPS A/C/Y/W VACCINE Aged Out No longer eligible based on patient's age to complete this topic Insurance SELF PAY NO INSURANCE Member Subscriber Plan / Payer (Ef fective for All Dates) Name:Pedro Angela Member ID:Not on file Relation to Subscriber:Not on file Name:PEDRO ANGELA Subscriber ID:Not on file (Home) Address: [facility] [place] [address] Payer ID:Not on file Group ID:Not on file Type:Self Pay Address: [place], [place] MEDIC[facility]
--- OUTSIDE RECORDS SUMMARY | 2025-06-27 15:51 | XMS_ITS | Encounter Summary ---
Author Organization [facility] Address [address] [place] [address] Care Team Providers Care Field Crop Harvest Contractor Name Role Phone Norm Diggs MD Primary Care Provider [phone] Encounter Details Date Type Department Care Team (Late st Contact Info) Description 06/25/2025 External Device Data [facility] ABSTRACTION Provider, Abstract NO ADDRESS ON FILE Social History Tobacco Use Types Packs/Day Years Used Date Smoking Tobacco: Former Smokeless Tobacco: Never Comments:quit November 2007 Alcohol Use Standard Drinks/Week Comments Yes 0 (1 standard drink = 0.6 oz pur e alcohol) Sex and Gender Information Value Date Recorded Sex Assigned at Not on file Legal Sex Male 1:58 PM CDT Gender Identity Not on file Sexual Orientation Not on file documented as of this encounter Plan of Treatment Upcoming Encounters Date Type Department Care Team (Late st Contact Info) Description 11/28/2025 3:30 PM TRAVEL CLERK Office Visit [facility] Oncology and Hematology - [place] [address] [place] [address] Arturo Muro MD [address] [place] [address] documented as of this encounter Visit Diagnoses Not on filedocumented in this encounter Care Teams Field Crop Harvest Contractor Relationship Specialty Start Date End Date Norm Diggs MD [address] [place] [address] PCP - General Internal Medicine 07/15/21 documented as of this encounter
--- OUTSIDE RECORDS SUMMARY | 2025-06-27 15:51 | XMS_ITS | Clinical Summary ---
Author Organization [facility] Address [address] [address] Care Team Providers Care Foot Press Operator Name Role Phone Norm Diggs MD Primary Care Provider Allergies Active Allergy Reactions Criticality Noted Date Comments Penicillins Rash Low 07/15/2021 Sulfa (Sulfonamide Antibiotics) Rash Low 06/22 Medications amLODIPine-palmira zepril (LOTREL) 5-20 mg capsule TAKE 1 CAPSULE BY MOUTH IN THE MORNING 08/22/2020 Active levothyroxine 175 mcg tablet 175 mcg. 03/23/2021 Acti ve finasteride (PROSCAR) 5 mg tablet Take 5 mg by mouth daily. 06/06/2020 Active tamsulosin (FLOMAX) 0.4 mg capsule Take 0.4 mg by mouth daily. 06/06/2020 Active aspirin (ECOTRIN EC) 81 mg Tablet, Delayed Release (E.C.) Take 81 mg by mouth daily. Active Active Problems Problem Noted Date Diagnosed Date Erythrocytosis 07/15/2021 Iron overload 07/15/2021 Encounters Date Type Department Care Team Description 06/25/2025 External Device Data [facility] ABSTRACTION Provider, Abstract 04/16/2025 External Device Data [facility] ABSTRACTION Provider, Abstract 04/11/2025 External Device Data [facility] ABSTRACTION Provider, Abstract 04/11/2025 External Device Data [facility] ABSTRACTION Provider, Abstract 04/10/2025 External Device Data [facility] ABSTRACTION Provider, Abstract 04/09/2025 External Device Data [facility] ABSTRACTION Provider, Abstract from Last 3 Months Family History Medical History Relation Name Comments Cancer Father Diabetes Mother Relation Name Status Comments Brother 1 Alive Brother 2 Alive Daughter 1 Alive Daughter 2 Alive Father Mother Son Alive Social History Tobacco Use Types Packs/Day Years Used Date Smoking Tobacco: Former Smokeless Tobacco: Never Tobacco Cessation:Counseling Given: Not Answered Comments:quit November 2007 Alcohol Use Standard Drinks/Week Comments Yes 0 (1 standard drink = 0.6 oz pur e alcohol) Sex and Gender Information Value Date Recorded Sex Assigned at Not on file Legal Sex Male 1:58 PM CDT Gender Identity Not on file Sexual Orientation Not on file Last Filed Vital Signs Vital Sign Reading Time Taken Comments Blood Pressure 142/83 11/28/2024 3:40 PM NURSING INFORMATICS SPECIALIST Pulse 75 11/28/2024 3:40 PM NURSING INFORMATICS SPECIALIST Temperature 36.3 C (97.4 F) 11/28/2024 3:40 PM NURSING INFORMATICS SPECIALIST Respiratory Rate 18 11/28/2024 3:40 PM NURSING INFORMATICS SPECIALIST Oxygen Saturation 94% 11/28/2024 3:40 PM NURSING INFORMATICS SPECIALIST Inhaled Oxygen Concentration - - Weight 148.8 kg (328 lb) 11/28/2024 3:40 PM NURSING INFORMATICS SPECIALIST Height 182.9 cm (6') 05/26/2022 3:22 PM CDT Body Mass Index 44.48 05/26/2022 3:22 PM CDT Plan of Treatment Upcoming Encounters Date Type Department Care Team (Late st Contact Info) Description 11/28/2025 3:30 PM NURSING INFORMATICS SPECIALIST Office Visit [facility] Oncology and Hematology - Rishi [address] [place] [address] Arturo Muro MD [address] [place] [address] Health Maintenance Due Date Last Done Comments FIT-DNA Q 3 years 1999 FIT/FOBT Q 1 year 1999 Flex Sig/CT Colonography Q 5 years 1999 ZOSTER VACCINE (1 of 2) 02/02/2004 RSV VACCINE (60+ or ) (1 - Risk 60-74 years 1-dose series) 2014 Abdominal Aortic Aneurysm (A AA) Screening 2019 PNEUMOCOCCAL VACCINE 50+ YEA RS (2 of 2 - PCV20 or PCV21) 08/28/2019 08/28/2018 COVID-19 Vaccine (4 - 2023-2 5 season) 2024 09/10/2021, 02/11/2021, 01/14/2021 INFLUENZA VACCINE (#1) 2025 , 12/18/2019, 08/28/2018, Additional history exists DTAP/TDAP/TD VACCINES (4 - T d or Tdap) 11/04/2031 11/04/2021, 08/03/2013, 04/27/2010 COLORECTAL SCREENING 09/14/2034 09/14/2024, 12/13/19 08 Colorectal Cancer Screening 09/14/[address] [place] [address] [facility] OPTIONS PPO [id number] Care Teams Foot Press Operator Relationship Specialty Start Date End Date Norm Diggs MD [address] [place] [address] PCP - General Internal Medicine 07/15/21
[2025-06-27 16:15] LABS: Hematocrit 50.1 % (42.0-52.0); Hemoglobin 16.5 g/dL (14.0-18.0); Immature Granulocyte Percent A 0.3 % (0-0.5); Lymphocytes Absolute Auto 1.22 K/mm3 (0.9-3.2); Mean Corpuscular HGB Conc 32.9 g/dl (32-36); Mean Corpuscular Hemoglobin 30.3 pg (26-34); Mean Corpuscular Volume 92.1 fl (80-100); Nucleated Red Blood Cells Absolute Auto 0.000 K/mm3 (0.0-0.012); Nucleated Red Blood Cells Perc 0.0 % (0.0-0.2); Platelet Count Result 198 k/mm3 (150-375); Red Blood Count 5.44 M/mm3 (4.6-6.20); White Blood Count 6.1 K/mm3 (4.5-10.0)
[2025-06-27 16:36] LABS: Alanine Aminotransferase 56 U/L (6-50); Albumin Level 4.4 g/dL (3.5-5.1); Alkaline Phosphatase 77 U/L (38-126); Anion Gap 10 mmol/L (4-12); Aspartate Amino Transferase 43 U/L (17-59); Bilirubin,Total 1.2 mg/dL (0.2-1.3); Blood Urea Nitrogen 12 mg/dL (9-20); Calcium 9.4 mg/dL (8.4-10.2); Carbon Dioxide 23 mmol/L (22-30); Chloride 101 mmol/L (98-107); Cholesterol 159 mg/dL (0-200); Estimated Glomerular Filt Rate > 60; Glucose 103 mg/dL (65-110); HDL Direct 38 mg/dL; Potassium 4.4 mmol/L (3.4-5.0); Sodium 134 mmol/L (137-145); Total Protein 7.7 g/dL (6.3-8.2); Triglycerides 122 mg/dL (<150)
[2025-06-27 17:12] LABS: Prostate Specific Antigen 1.3 ng/mL (< OR = 4.0); Thyroid Stimulating Hormone 0.847 uIU/mL (0.465-4.680)
[2025-06-27 17:50] LABS: Hemoglobin A1C 5.7 % (<5.7)
== END 2025-06-27 15:46 | disposition home or self-care (01) ==
LOC: ANHLAB 15:49
PROVIDERS: PCP Internal Medicine; Visit Provider Internal Medicine
DX: I10 Essential (primary) hypertension (principal); R73.03 Prediabetes; D75.1 Secondary polycythemia; E03.9 Hypothyroidism, unspecified; R35.0 Frequency of micturition
CPT/HCPCS: 36415; 80053; 80061; 83036; 84153; 84443; 85025